=== PATIENT | female | born 1940 | race Caucasian/White ===

== ENCOUNTER 2017-10-09 15:38 | Inpatient (IN) | payer MEDICARE, BC ==
[~2017-10-09] VITALS: Ht 160 cm; Wt 60.5 kg
[~2017-10-09 15:38] MED LIST: ADVAIR INH; ALBUTEROL NEB; ALBUTEROL0.63 MG/3 INH; ALPRAZOLAM ER0.5 MG PO; ASPIR 8181 MG PO; AZELASTINE137 MCG/0. INH; BENZONATATE200 MG PO; CENTRUM SILVER1 EAC4 PO; CITRACAL PO; CLARITIN-D 121 EACH PO; ETOMIDATE 2 MG/ML 10 ML INJ IV ONE; FISH OIL PO; FORTICAL3.7 ML INH; GLYCOPYRROLATE INJ 1MG/ 5 ML SYR ONE; LEVAQUIN500 MG PO; LIDOCAINE HCL 2% LOCAL INJ 5 ML SDV VIAL INJ ONE; METAMUCIL PO; METOPROLOL TART25 MG PO; MONTELUKAST SOD10 MG PO; NEOSTIGMINE 5 MG/5ML SYR ONE; PERFOROMIS20 MCG/2 M INH; PLAQUENIL200 MG PO; PREDNISONE2.5 MG PO; PREDNISONE5 M1 PO; PROAIR HFA INH8.5 GM INH; ROCURONIUM BROMIDE 10 MG/ML 5ML VIAL ONE; SEVOFLURANE INHAL SOLN 250 ML PEN BTL ONE; SPIRIVA18 MCG INH; SUCCINYLCHOLINE 200 MG/10 ML SYR ONE; TESSALON PERLE100 MG
[2017-10-09] MEDS ORDERED: ALBUTEROL SULF 0.083% NEB SOLN 3 ML NEB NEB STA (16:20)
[2017-10-09] MEDS ORDERED: LEVOFLOXACIN 500MG/D5W 100ML 100 ML IV STA (16:20)
[2017-10-09] MEDS ORDERED: METRONIDAZOLE 500MG/NS 100ML 100 ML IV STA (16:20)
[2017-10-09] MEDS ORDERED: MORPHINE SULFATE 2 MG/ML SYR IV STA (16:20)
[2017-10-09] MEDS ORDERED: SODIUM CHLORIDE 0.9% 1000ML 1,000 ML IV STA (16:20)
[2017-10-09] MEDS ORDERED: IPRATROPIUM BROMIDE 0.02% 2.5 ML NEB NEB STA (16:20)
[2017-10-09] MEDS ORDERED: PANTOPRAZOLE 40 MG 10ML VIAL IV STA (16:20)
[2017-10-09] MEDS ORDERED: SODIUM CHLORIDE 0.9% 1000ML 500 ML IV STA (16:20)
[2017-10-09] MEDS ORDERED: ONDANSETRON HCL INJ 2 MG/ML VIAL IV STA (16:20)
[2017-10-09] MEDS ORDERED: METHYLPREDNISOLONE SOD SUCC 125 MG/2ML VIAL IV NR (16:45)
[2017-10-09] MEDS ORDERED: DIATRIZOATE MEGL/DIATRIZOA SOD 30 ML BTL PO ONE (16:53)
[2017-10-09 17:12] LABS: BASOPHILS # (AUTO) 0.2 (0.0-0.1); BASOPHILS % 0.5 % (0.0-1.0); HEMATOCRIT 46.6 % (34.2-44.1); HEMOGLOBIN 14.6 g/dL (12.0-16.0); LYMPHOCYTES # (AUTO) 0.5 (1.0-3.2); LYMPHOCYTES % 1.7 % (18.0-39.1); MEAN CORPUSCULAR HEMOGLOBIN 27.6 pg (28-32); MEAN CORPUSCULAR HGB CONC 31.3 g/dL (31-35); MEAN CORPUSCULAR VOLUME 88.1 fL (81-99); MONOCYTES # (AUTO) 1.2 (0.2-0.8); MONOCYTES % 4.1 % (4.4-11.3); NEUTROPHILS # (AUTO) 26.6 (2.1-6.9); NEUTROPHILS % 90.4 % (38.7-80.0); PLATELET COUNT 408 x10e3/uL (140-360); RED BLOOD COUNT 5.29 x10e6/uL (3.6-5.1); RED CELL DISTRIBUTION WIDTH 14.3 % (11.7-14.4)
[2017-10-09 17:20] LABS: INR 1.15; PROTHROMBIN TIME 13.8 seconds (11.9-14.5)
[2017-10-09] MEDS ORDERED: SODIUM CHLORIDE 0.9% 500ML 500 ML ONE (17:20)
[2017-10-09 17:21] LABS: PARTIAL THROMBOPLASTIN TIME 32.1 seconds (23.8-35.5)
--- NOTE | 2017-10-09 17:27 | Diagnostic Imaging Report ---
PROCEDURE: A single AP view of the chest. COMPARISON: 10/23/12 INDICATIONS: ABDOMINAL PAIN FINDINGS: Lines/tubes: None. Lungs: The lungs are well inflated and clear. There is no evidence of pneumonia or pulmonary edema. Pleura: There is no pleural effusion or pneumothorax. Heart and mediastinum: The heart and the mediastinum are unremarkable. Bones: No acute bony abnormality. Questionable free air under right hemidiaphragm. IMPRESSION: 1. No acute cardiopulmonary disease. 2. Questionable free air under right hemidiaphragm. Please correlate with CT abdomen/pelvis. Dictated by: Kevin Lombardo M.D. on 10/09/2017 at 17:27 Electronically approved by: Kevin Lombardo M.D. on 10/09/2017 at 17:27
[2017-10-09 17:28] LABS: ALBUMIN 2.7 g/dL (3.5-5.0); ALBUMIN/GLOBULIN RATIO 0.6 (0.8-2.0); ANION GAP 23.6 mmol/L (8-16); CALCIUM 10.1 mg/dL (8.4-10.2); CREATININE, SERUM 1.51 mg/dL (0.57-1.11); MAGNESIUM 1.8 MG/DL (1.3-2.1); POTASSIUM 4.6 mmol/L (3.5-5.1)
[2017-10-09] MEDS ORDERED: SODIUM CHLORIDE 0.9% 1000ML 1,000 ML IV SCH (17:34)
[2017-10-09] MEDS ORDERED: FENTANYL CITRATE/PF 100MCG/2 ML INJ IV ONE (17:45)
[2017-10-09] MEDS ORDERED: ONDANSETRON HCL INJ 2 MG/ML VIAL IV PRN (17:45)
[2017-10-09] MEDS ORDERED: ALBUTEROL SULF 0.083% NEB SOLN 3 ML NEB NEB PRN (17:45)
[2017-10-09] MEDS ORDERED: IPRATROPIUM BROMIDE 0.02% 2.5 ML NEB NEB PRN (17:45)
[2017-10-09] MEDS ORDERED: FENTANYL CITRATE/PF 100MCG/2 ML INJ IV SCH (17:45)
[2017-10-09 17:47] LABS: CREATINE KINASE MB 3.2 ng/mL (0-5.0); THYROID STIMULATING HORMONE 2.305 uIU/mL (0.350-4.940)
[2017-10-09] MEDS ORDERED: METRONIDAZOLE 500MG/NS 100ML IV SCH (18:00)
[2017-10-09] MEDS ORDERED: DEXTROSE 50% SYRINGE 50 ML IV ONE (18:12)
[2017-10-09] MEDS ORDERED: MIDAZOLAM HCL 2 MG/2 ML VIAL ONE ×2 (18:16→18:28)
[2017-10-09] MEDS ORDERED: FENTANYL CITRATE/PF 100MCG/2 ML INJ ONE (18:28)
[2017-10-09 18:39] LABS: EOSINOPHILS % (MANUAL) 1 % (0-7); LYMPHOCYTES % (MANUAL) 2 % (19-48); MONOCYTES % (MANUAL) 3 % (3.4-9.0); NEUTROPHILS % (MANUAL) 94 % (40-74); PLATELET ESTIMATE ADEQUATE; PLATELET MORPHOLOGY COMMENT NORMAL; RBC MORPHOLOGY COMMENT NORMAL
[2017-10-09] MEDS: METRONIDAZOLE 500MG/NS 100ML 100 ML IV SCH (18:41)
[2017-10-09] MEDS ORDERED: ERTAPENEM 1GM/NS 100ML 100 ML IV SCH (18:45)
[2017-10-09] MEDS ORDERED: ERTAPENEM 1GM/NS 100ML 100 ML IV ONE (19:00)
--- OUTSIDE RECORDS SUMMARY | 2017-10-09 19:43 | XMS REPORT ---
Author Author [facility] Address Unknown Phone Unavailable Care Team Providers Care Surgical Technology Instructor Name Role Phone LAINEY PRESLEY Unavailable Unavailable Problems This patient has no known problems. Allergies, Adverse Reactions, Alerts This patient has no known allergies or adverse reactions. Medications This patient has no known medications. Results Test Description Test Time Test Comments Text Results Atomic Results Result Comments CHEST SINGLE (PORTABLE) [place] [address] Patient Name: YADY PONCE MR #: [id number] : 1940 Age/Sex: 77/F Req #: [id number] Adm Physician: Ordered by: LAINEY PRESLEY MD, MD Report #: [id number] Location: ER Room/Bed: Procedure: [id number] DX/CHEST SINGLE (PORTABLE) Exam Date: Exam Time: REPORT STATUS: Signed PROCEDURE: A single AP view of the chest. COMPARISON: 10/23/12 INDICATIONS: ABDOMINAL PAIN FINDINGS: Lines/tubes: None. Lungs: The lungs are well inflated and clear. There is no evidence of pneumonia or pulmonary edema. Pleura: There is no pleural effusion or pneumothorax. Heart and mediastinum: The heart and the mediastinum are unremarkable. Bones: No acute bony abnormality. Questionable free air under right hemidiaphragm. IMPRESSION: 1. No acute cardiopulmonary disease. 2. Questionable free air under right hemidiaphragm. Please correlate with CT abdomen/pelvis. Dictated by: Kevin Chong M.D. on 10/09/2017 at 17:27 Electronically approved by: Kevin Chong M.D. on 10/09/2017 at 17:27 Dictated By: KEVIN CHONG MD 26 Transcribed By: HARRY on 10/09/171726 COPY TO: LAINEY PRESLEY
--- NOTE | 2017-10-09 19:47 | Diagnostic Imaging Report ---
EXAMINATION: CT of the abdomen and pelvis without contrast. TECHNIQUE: Spiral CT images of the abdomen and pelvis were performed from the lung bases to the lesser trochanters. No intravenous contrast was given per physician's request. Oral dilute Gastrografin was given. Coronal and sagittal reformatted images were obtained. COMPARISON: None. CLINICAL HISTORY:History of diverticulitis, bloating, abdominal pain DISCUSSION: ABSENCE OF INTRAVENOUS CONTRAST DECREASES SENSITIVITY FOR DETECTION OF FOCAL LESIONS AND VASCULAR PATHOLOGY. ABDOMEN/PELVIS: LOWER THORAX: Mild bronchial wall thickening and bronchiectatic changes in the right lower lobe. Mild atelectatic changes in the lateral aspect of the right lower lobe. Pectus excavatum. Atherosclerotic calcification of the thoracic aorta. HEPATOBILIARY: No focal hepatic lesions. No intra or extrahepatic biliary ductal dilation. GALLBLADDER: Punctate hyperdensities in the gallbladder lumen likely representing a combination of tiny stones and sludge (for example coronal image 40 and series 2, image 24) No wall thickening. SPLEEN: No splenomegaly. PANCREAS: No focal masses or ductal dilatation. ADRENALS: No adrenal nodules. KIDNEYS/URETERS: No hydronephrosis, stones, or solid mass lesions. PELVIC ORGANS/BLADDER: Bladder is unremarkable. [place] catheter is located in the vagina. No adnexal masses. PERITONEUM/RETROPERITONEUM: Moderate pneumoperitoneum. Scattered foci of air in the mesentery, with the largest focus located adjacent to a small bowel loop in the mid pelvis (series 2, image 54). LYMPH NODES: No intra-abdominal,retroperitoneal, pelvic or inguinal lymphadenopathy. VESSELS: Atherosclerotic calcification of the abdominal aorta and iliac vessels. GI TRACT: Several air and fluid filled loops of proximal small bowel are mildly dilated, with maximal measurement of approximately 3.2 cm. The ileum is mostly decompressed. No large bowel dilation. Moderate to large amount of retained stool. Descending and sigmoid colon diverticulosis. Moderate fat stranding and soft tissue density adjacent to a 3-4 cm segment of the mid to distal sigmoid colon with multiple diverticula (series 2, image 57 and sagittal image 60), likely representing diverticulitis and phlegmon. Stomach is unremarkable. BONES AND SOFT TISSUES: No aggressive lytic lesions. Degenerative changes in the lumbosacral spine. Calcified bilateral gluteal injection granulomas. IMPRESSION: 1. Findings consistent with mid to distal sigmoid diverticulitis and likely phlegmon formation, with likely perforation as source of moderate pneumoperitoneum. 2. Mildly dilated proximal small bowel loops, likely representing ileus. No large bowel dilation. 3. Cholelithiasis and likely sludge, without CT evidence of cholecystitis. 4. Findings in the right lower lobe likely reflect sequela of chronic bronchitis. 5. Findings discussed with Dr. Reed October 09, 2017 at 1935 hours Signed by: Dr. Jesus Covarrubias M.D. on 10/09/2017 7:44 PM
[2017-10-09 20:01] LABS: BILIRUBIN,URINE NEGATIVE (NEGATIVE); CLARITY,URINE CLEAR (CLEAR); COLOR,URINE YELLOW (YELLOW); KETONES,URINE NEGATIVE (NEGATIVE); LEUKOCYTE ESTERASE ,URINE NEGATIVE (NEGATIVE); NITRITE,URINE NEGATIVE (NEGATIVE); URINE UROBILINOGEN 0.2 mg/dL (0.2 - 1)
[2017-10-09 20:07] LABS: PROTEIN,URINE DIPSTICK TRACE (NEGATIVE)
[2017-10-09 20:13] LABS: EPITHELIAL CELLS,URINE FEW /LPF; RBC,URINE 0-5 /HPF (0-5)
--- NOTE | 2017-10-09 21:26 | Consultation ---
DATE OF CONSULTATION: October 09, 2017 A 77-year-old female. ATTENDING PHYSICIANS: Dr. Antonino Young and Dr. Osorio Cruz. CLINICAL HISTORY: This is a 77-year-old white woman known to our service from previous evaluations by Dr. Derek Viveros, seen in the emergency room of [facility] because of sinus tachycardia with PACs with a rate of 127 beats per minute. This rhythm initially was thought to be atrial fibrillation. This patient apparently has COPD, has had tachycardia, PAC. Echocardiogram done in 2009 are showing ejection fraction of 60% with mitral valve prolapse. Septum was slightly hypokinetic. Pulmonary artery systolic pressure was 38 mmHg. PAST MEDICAL HISTORY: Remarkable for cigarette smoking, also for rheumatoid arthritis, previously using prednisone. PAST SURGERY: Laminectomy, hysterectomy, tonsillectomy, adenoidectomy, laparoscopic left knee surgery, bladder suspension. PERSONAL/SOCIAL HISTORY: She denies any drinking now. She stopped smoking in 2004. She was 2 pack years per day cigarette smoker. REVIEW OF SYSTEMS: Noncontributory. This afternoon, patient developed severe abdominal pains. Initially thought to be constipation. Finally, she went to see Dr. Antonino Young's office, but was not seen and was instead referred directly to our emergency room. In the emergency room, her workup indicated she may have bowel perforation. She is scheduled for surgery and cardiology consultation requested. PAST MEDICAL HISTORY: Also remarkable for rheumatoid arthritis, previously treated with steroids, COPD as mentioned. PAST SURGERY: Laminectomy, hysterectomy, tonsillectomy and adenoidectomy, laparoscopic left knee surgery, bladder suspension. PERSONAL/SOCIAL HISTORY: She stopped smoking in 2004. Has history of drinking. She was 2-pack years per day of smoker. REVIEW OF SYSTEMS: Noncontributory. PHYSICAL EXAMINATION GENERAL: She is thin, alert, coherent, appears to be comfortable. CARDIAC: Jugular veins are not distended. S1 and S2 were regular, distant with occasional ectopy, somewhat rapid. LUNGS: Diminished breath sounds. ABDOMEN: Soft, but tender with guarding. Bowel sounds were diminished. EXTREMITIES: No cyanosis, clubbing, edema. IMPRESSIONS 1. Increased risk from the cardiac standpoint for the planned bowel surgery due to her advanced age. 2. History of cardiac arrhythmia, probably representing premature atrial contractions rather than atrial fibrillation. She has pretty significant sinus tachycardia with ventricular rate of 127 beats per minute. This may be exacerbated by her anxiety, pulmonary condition, as well as possible underlying pulmonary medications. 3. Perforated bowel with free air and acute abdomen. 4. Chronic obstructive pulmonary disease. 5. History of rheumatoid arthritis. RECOMMENDATION: Check thyroid function. Check for anemia. Consider D-dimer. Consider echocardiogram. Increased risk from a cardiac standpoint for the planned bowel surgery, which will be done in emergency basis was explained, understood. Patient is willing to proceed as planned. Job#: [id number] cc:MD RAFFY HDZ MD
[2017-10-09] MEDS ORDERED: FENTANYL CITRATE/PF 100MCG/2 ML INJ IV PRN (21:45)
[2017-10-10] VITALS (128 sets, daily range): BP systolic 52–202; BP diastolic 23–260
[2017-10-10] MEDS ORDERED: METHYLPREDNISOLONE SOD SUCC 40 MG/ML VIAL IV SCH
[2017-10-10] MEDS ORDERED: ONDANSETRON HCL INJ 2 MG/ML VIAL IV PRN (02:45)
[2017-10-10] MEDS ORDERED: ACETAMINOPHEN 1000 MG/100 ML IV PRN (02:45)
[2017-10-10] MEDS: SODIUM CHLORIDE 0.9% 1000ML 1,000 ML IV SCH ×2 (03:30→12:43)
[2017-10-10] MEDS: SODIUM CHLORIDE 0.9% 250ML IRRIG IR SCH ×6 (03:45→23:00)
[2017-10-10] MEDS: HYDROMORPHONE 1MG/1ML INJ IV PRN (04:20)
--- NOTE | 2017-10-10 05:33 | Operative Report ---
DATE OF PROCEDURE: October 10, 2017 PREOPERATIVE DIAGNOSIS: Perforated viscus and peritonitis. POSTOPERATIVE DIAGNOSIS: Perforated viscus and peritonitis secondary to perforated sigmoid diverticulitis with pelvic abscess. OPERATIONS PERFORMED 1. Exploratory laparotomy. 2. Sigmoid colectomy and colostomy. 3. Vargas's pouch. ANESTHESIA: General. COMPLICATIONS: None. ESTIMATED BLOOD LOSS: 200 mL. DESCRIPTION OF PROCEDURE: With the patient lying in bed in the supine position under good general endotracheal anesthesia, the abdomen was prepped with Betadine solution and draped in the usual manner. A midline incision was made. It was carried down through the subcutaneous tissue and through the midline fascia. The peritoneum was opened and the abdomen was entered. Upon entering the abdominal cavity, some foul-smelling material was encountered. Examination at this point revealed a mass in the sigmoid colon consistent with perforated diverticulitis with some loops of small bowel stuck to the infected area. The rest of the abdominal exploration did not show any other sign of any perforation anywhere else. We decided to go ahead and proceed with the sigmoid colon resection and a colostomy. The sigmoid colon was then mobilized over the lateral gutter and brought medially. The colon was divided at the level of the descending colon after mobilizing the splenic flexure using an application of the GARCÍA-75 stapler using the In-Seal device. The mesentery of the colon was then slowly and carefully divided, including the area of the perforation. Then at the level of the lower sigmoid colon the colon was again divided with another application of the GARCÍA-75 stapler dividing the colon and sending it for pathological examination. The whole area was then inspected, and all of the loculations were broken down. The bowel was run from one end to the other. The whole abdomen was then copiously irrigated and perfect hemostasis was ascertained. The proximal colon was then prepared for ostomy. Another small portion was removed to make sure that we had a viable part of the colon to the colostomy. After this was done, incision was then made in the left midabdomen. A cruciate incision was carried down through the rectus fascia, and a tunnel was created without any difficulty. The colon was then brought out through the outside through the created stoma site. The abdomen was then closed in layers. Peritoneum was closed with a running suture of #1 Vicryl. The midline fascia was closed with a running suture of #1 PDS and the skin was closed with clips. The colostomy was then matured using interrupted sutures of 3-0 Vicryl. Appliance and dressings were applied. The sponge, lap and needle count was correct. Patient tolerated the procedure well, and returned to the recovery room in stable condition. Job#: [id number] ALYSSA
[2017-10-10] MEDS ORDERED: PIPER-TAZ 3.375 GM 50 ML IV SCH (06:00)
[2017-10-10] MEDS: PANTOPRAZOLE 40 MG 10ML VIAL IV SCH (06:05)
[2017-10-10 06:34] LABS: BASOPHILS # (AUTO) 0.2 (0.0-0.1); BASOPHILS % 0.6 % (0.0-1.0); HEMATOCRIT 39.5 % (34.2-44.1); HEMOGLOBIN 11.9 g/dL (12.0-16.0); LYMPHOCYTES # (AUTO) 0.4 (1.0-3.2); LYMPHOCYTES % 1.5 % (18.0-39.1); MEAN CORPUSCULAR HEMOGLOBIN 27.8 pg (28-32); MEAN CORPUSCULAR HGB CONC 30.1 g/dL (31-35); MEAN CORPUSCULAR VOLUME 92.3 fL (81-99); MONOCYTES # (AUTO) 2.3 (0.2-0.8); MONOCYTES % 7.8 % (4.4-11.3); NEUTROPHILS # (AUTO) 25.7 (2.1-6.9); PLATELET COUNT 349 x10e3/uL (140-360); RED BLOOD COUNT 4.28 x10e6/uL (3.6-5.1); RED CELL DISTRIBUTION WIDTH 14.6 % (11.7-14.4)
[2017-10-10] MEDS: METRONIDAZOLE 500MG/NS 100ML 100 ML IV SCH ×4 (06:40→19:25)
[2017-10-10 06:45] LABS: INR 1.39
[2017-10-10 07:02] LABS: ALBUMIN 1.8 g/dL (3.5-5.0); ALBUMIN/GLOBULIN RATIO 0.6 (0.8-2.0); ANION GAP 17.3 mmol/L (8-16); CALCIUM 7.2 mg/dL (8.4-10.2); CREATININE, SERUM 1.08 mg/dL (0.57-1.11); MAGNESIUM 1.2 MG/DL (1.3-2.1); PHOSPHORUS 4.9 MG/DL (2.3-4.7); POTASSIUM 4.3 mmol/L (3.5-5.1)
[2017-10-10] MEDS ORDERED: NALOXONE HCL INJ 0.4 MG/ML AMP ONE (08:15)
[2017-10-10] MEDS ORDERED: NALOXONE HCL INJ 0.4 MG/ML AMP IV PRN (08:30)
[2017-10-10] MEDS: FORMOTEROL FUMARATE 20 MCG/2 ML VIAL IH SCH ×2 (09:00→19:00)
[2017-10-10] MEDS ORDERED: FAMOTIDINE 20 MG/2 ML VIAL IV SCH (09:00)
[2017-10-10] MEDS ORDERED: NOREPINEPHRINE BITARTRATE/ NS 250 ML ONE ×2 (09:02→16:56)
[2017-10-10 09:26] LABS: HEMATOCRIT 40.3 % (34.2-44.1); HEMOGLOBIN 11.7 g/dL (12.0-16.0); MEAN CORPUSCULAR HEMOGLOBIN 27.8 pg (28-32); MEAN CORPUSCULAR VOLUME 95.7 fL (81-99); PLATELET COUNT 313 x10e3/uL (140-360); RED BLOOD COUNT 4.21 x10e6/uL (3.6-5.1); RED CELL DISTRIBUTION WIDTH 14.6 % (11.7-14.4)
[2017-10-10 09:44] LABS: ABG PCO2 49 mmHg (41-51); ABG PH 7.06 (7.31-7.41); ABG PO2 512 mmHg (80-105)
[2017-10-10 09:45] LABS: ABG HCO3 14 mmol/L (23-28)
[2017-10-10] MEDS ORDERED: SODIUM CHLORIDE 0.9% IV PRN (09:45)
[2017-10-10] MEDS ORDERED: EPINEPHRINE HCL IV PRN (09:45)
[2017-10-10 09:47] LABS: ALBUMIN 1.9 g/dL (3.5-5.0); ALBUMIN/GLOBULIN RATIO 0.6 (0.8-2.0); ANION GAP 25.5 mmol/L (8-16); CALCIUM 7.7 mg/dL (8.4-10.2); CREATININE, SERUM 1.82 mg/dL (0.57-1.11)
[2017-10-10 09:48] LABS: CREATINE KINASE MB 11.4 ng/mL (0-5.0)
[2017-10-10 09:49] LABS: POTASSIUM 6.5 mmol/L (3.5-5.1)
--- NOTE | 2017-10-10 09:54 | Diagnostic Imaging Report ---
EXAMINATION: CHEST SINGLE (PORTABLE) INDICATION: \S\intubated COMPARISON: CT abdomen and pelvis 10/09/2017. Chest x-ray 04/23/2016. FINDINGS: AP view TUBES and LINES: Endotracheal tube is 5.5 cm above the ana m. The trachea is slightly deviated to the left and is unchanged compared to prior examinations. LUNGS: Lungs are hyper inflated. Lungs are clear. There is no evidence of pneumonia or pulmonary edema. PLEURA: No pleural effusion or pneumothorax. HEART AND MEDIASTINUM: The cardiomediastinal silhouette is unremarkable. BONES AND SOFT TISSUES: No acute osseous lesion. Soft tissues are unremarkable. UPPER ABDOMEN: No free air under the diaphragm. IMPRESSION: 1. Endotracheal tube is 5.5 cm above the ana m. The trachea is slightly deviated to the left and is unchanged compared to prior examinations. 2. Patient slightly rotated to left. Signed by: Dr. Jimenez Matthews M.D. on 10/10/2017 9:51 AM
[2017-10-10] MEDS ORDERED: SODIUM BICARBONATE 8.4% SYRING 50 ML ONE (10:13)
[2017-10-10] MEDS ORDERED: CALCIUM GLUCONATE 10% INJ 0.465 MEQ/ML VIAL ONE (10:13)
[2017-10-10 10:21] LABS: BAND NEUTROPHILS % (MANUAL) 6 %; LYMPHOCYTES % (MANUAL) 4 % (19-48); MONOCYTES % (MANUAL) 10 % (3.4-9.0); NEUTROPHILS % (MANUAL) 80 % (40-74); PLATELET ESTIMATE ADEQUATE; PLATELET MORPHOLOGY COMMENT NORMAL; RBC MORPHOLOGY COMMENT NORMAL
[2017-10-10] MEDS ORDERED: DEXTROSE 5% IV SCH (10:30)
[2017-10-10] MEDS ORDERED: SODIUM BICARBONATE 8.4% IV SCH (10:30)
[2017-10-10] MEDS: SODIUM BICARBONATE 8.4% 150 ML in DEXTROSE 5% 1,000 ML IV SCH ×2 (10:45→19:57)
[2017-10-10] MEDS ORDERED: INSULIN REGULAR, HUMAN 100 UNIT/1 ML 3ML VIAL ONE (10:50)
[2017-10-10 11:12] LABS: BAND NEUTROPHILS % (MANUAL) 9 %; LYMPHOCYTES % (MANUAL) 4 % (19-48); MONOCYTES % (MANUAL) 3 % (3.4-9.0); NEUTROPHILS % (MANUAL) 84 % (40-74); PLATELET ESTIMATE ADEQUATE; PLATELET MORPHOLOGY COMMENT NORMAL; RBC MORPHOLOGY COMMENT NORMAL
[2017-10-10 12:23] LABS: ALBUMIN/GLOBULIN RATIO 0.7 (0.8-2.0); ANION GAP 18.3 mmol/L (8-16); CREATININE, SERUM 1.41 mg/dL (0.57-1.11); POTASSIUM 4.3 mmol/L (3.5-5.1)
[2017-10-10 12:33] LABS: CALCIUM 5.8 mg/dL (8.4-10.2)
[2017-10-10] MEDS ORDERED: CALCIUM GLUCONATE 10% INJ 4.65 MEQ in SODIUM CHLORIDE 0.9% 50ML 50 ML IV SCH (12:45)
[2017-10-10] MEDS ORDERED: ALBUMIN 5% 250ML IV SCH (12:45)
--- NOTE | 2017-10-10 13:15 | Cardiology Report ---
DATE OF STUDY: October 10, [address] Huerta, Dr. Antonino Young. Healthcare Translator Dr. Adam. A 77-year-old female. M-MODE: Normal chamber wall dimensions. Normal contractility. Normal mitral and aortic valves. No pericardial effusion. SECTOR SCAN: Normal chamber wall dimensions. Normal contractility. Normal mitral, aortic and tricuspid valves. No pericardial effusion. CARDIAC DOPPLER STUDY WITH COLOR: Mild mitral regurgitation. Trace aortic and tricuspid regurgitation. Pulmonary artery systolic pressure estimated at 40 mmHg. CONCLUSIONS: 1. Trace tricuspid regurgitation with borderline pulmonary hypertension. Pulmonary artery systolic pressure estimated at 40 mmHg. 2. Mild mitral regurgitation. 3. Trace aortic regurgitation. 4. Left ventricular ejection fraction is approximately 60%. Job#: [id number] EV cc:Sergo KEMP MD
--- NOTE | 2017-10-10 13:19 | Diagnostic Imaging Report ---
EXAMINATION: CHEST SINGLE (NOT PORTABLE) INDICATION: \S\hemodialysis line placement COMPARISON: Chest x-ray 10/10/2017 FINDINGS: AP view TUBES and LINES: Endotracheal tube is unchanged. Nasogastric tube is in the stomach. New right hemodialysis catheter with tip in mid SVC. LUNGS: Lungs are well inflated. New left lower lobe atelectasis. PLEURA: New small left pleural effusion. HEART AND MEDIASTINUM: The cardiomediastinal silhouette is unremarkable. There are atherosclerotic calcifications within the aorta. BONES AND SOFT TISSUES: No acute osseous lesion. Soft tissues are unremarkable. UPPER ABDOMEN: No free air under the diaphragm. IMPRESSION: 1. New right hemodialysis catheter with tip in mid SVC. 2. New small left pleural effusion with atelectasis. Signed by: Dr. Jimenez Matthews M.D. on 10/10/2017 1:16 PM
--- NOTE | 2017-10-10 13:50 | Consultation ---
DATE OF CONSULTATION: October 10, 2017 STAT RENAL CONSULT Ms. Anahi Paz is a 77-year-old female who is currently in the ICU with sepsis and septic shock. She is status post abdominal exploratory laparotomy, sigmoid colectomy, colostomy and Vargas pouch creation. Currently hypotensive and severely septic, intra-abdominal, on Levophed at 10 mcg. Current systolic blood pressure 87. She has been given about 3 liters of saline so far in the form of boluses. Currently IV bicarbonate going. Hyperkalemic, which is why there was a stat consultation. She is anuric. Discussed with Dr. Fernie Reed in detail, who was called on a rapid response. Emergent treatment for hyperkalemia has been given. She has had prior significant history of COPD, prior tachyarrhythmia, prior bladder suspension surgery, arthroscopic knee surgery, hysterectomy, tonsillectomy. Prior history of tobacco addiction, quit several years ago. No recent echocardiogram available. Laboratory test shows potassium 6.5, bicarbonate 12, creatinine 1.82 with a calcium 7.7. Total bilirubin 1.7. LFTs significantly elevated, 546 and 535 AST/ALT respectively. Alkaline phosphatase is 96. CK is 257, troponin I 0.149. Albumin 1.9. Last blood gas shows pH 7.06, pCO2 49, pO2 of 512. CBC shows a __white count 26.9, __white count 11.7, platelets 313. ALLERGIES: ALENDRONATE, CALCITONIN, CODEINE, PINEAPPLE, ROFLUMILAST, THEOPHYLLINE. CURRENT MEDICATIONS: Patient is on IV bicarbonate drip, Levophed, Zofran p.r.n., albuterol/Atrovent nebulizer. She is on a Versed drip. She started on , ertapenem, received one-time dose. Received one-time dose of Levaquin. On Flagyl 500 mg IV q.6. SOCIAL HISTORY: As above. PAST HISTORY: As above. REVIEW OF SYSTEMS: Unable to get a review of systems due to medical condition. PHYSICAL EXAMINATION GENERAL: Patient does not follow commands but is arousable. She currently has a right-sided femoral central line. This is a thin-built female who is currently intubated, lying supine. VITAL SIGNS: Blood pressure 87 systolic at the moment with a pulse rate 92, sinus tachy. HEAD AND NECK: Orally intubated. Some amount of conjunctival edema noted. Neck veins could not be appreciated. LUNGS: Harsh vesicular breath sounds. Air entry clear bilaterally. Scattered rales. HEART: S1 and S2 audible. Tachycardic rhythm. ABDOMEN: Abdominal examination deferred. Has a dressing noted as well as a Vargas's pouch. A colostomy. LOWER EXTREMITIES: No edema. Some amount of acrocyanosis noted. IMPRESSION/PLAN 1. Severe sepsis with septic shock. 2. Hyperkalemia. 3. Severe metabolic acidosis. 4. Intra-abdominal sepsis. 5. Acute tubular necrosis. 6. Anuric. 7. Life-threatening hyperkalemia. Currently no EKG changes on the monitor. A stat dialysis catheter ordered. As soon as dialysis catheter is placed, nurse is on standby to do dialysis. At the moment is in shock. Will give normal saline 1 liter bolus. Will also give a gram of calcium gluconate. Will also give 2 vials of albumin. Hemodynamically unstable for dialysis, but we have no choice but to attempt dialysis with pressor support. Will need to start vasopressin as well once Levophed is maximized. Overall prognosis poor. Infectious Disease consulted on a stat basis. Job#: [id number] SAMARIA
[2017-10-10] MEDS ORDERED: ALBUMIN HUMAN 100 ML IV ONE (14:31)
[2017-10-10] MEDS ORDERED: ALBUMIN HUMAN 50 ML IV ONE (14:53)
--- NOTE | 2017-10-10 16:46 | Consultation ---
DATE OF CONSULTATION: PULMONARY CONSULTATION REASON FOR CONSULTATION: Respiratory failure. Septic shock. Severe metabolic acidosis. HISTORY OF PRESENT ILLNESS: Ms. Paz is a 77-year-old female who initially presented through the emergency room with the complaints of dizziness and weakness and abdominal pain. Per the chart, she is on chronic steroids for rheumatoid arthritis. She had no chest pain. She has had some difficulty breathing and chest discomfort. Patient also has history of COPD per the chart, was admitted in June 2016 here. She is possibly on home oxygen and has history of smoking as well. She underwent a CT of the abdomen and pelvis in the emergency room which showed distal sigmoid diverticulitis, likely phlegmon formation with perforation as a source of moderate pneumoperitoneum. Surgery consult was called, and patient was taken to the OR by Dr. Cruz this morning around 3 a.m. Patient underwent sigmoid colectomy, colostomy and exploratory laparotomy. Postoperative diagnosis was perforated viscus and peritonitis secondary to perforated sigmoid diverticulitis. Post colectomy she had a rapid response, and she came out of the OR extubated, became short of breath and was intubated. Post intubation, patient's blood gas shows pH of 7.06, pCO2 of 49, pO2 of 512. Chemistry showed creatinine went up to 1.82 and potassium was 6.5. Nephrology was consulted. AST/ALT increased to 2000. The patient is currently intubated and sedated. REVIEW OF SYSTEMS: Unable to elicit any as patient is currently on sedation. PAST MEDICAL HISTORY: Per the chart COPD, rheumatoid arthritis, history of cardiac arrhythmias, unsure which one specifically. PAST SURGICAL HISTORY: Hysterectomy, tonsillectomy, adenoidectomy, knee surgery. FAMILY AND SOCIAL HISTORY: Smoker, stopped in 2004. PHYSICAL EXAMINATION: VITALS: Temperature 97.4, pulse of 98, blood pressure 101/62. Patient is intubated, sedated on FIO2 of 100%, PEEP of 8, tidal volume of 450. HEENT: Head atraumatic normocephalic. NECK: Supple. No JVD. Patient is orally intubated, has a dialysis catheter on the right IJ. CHEST: Clear to auscultation bilaterally. No wheezing. No crackles. HEART: S1/S2 audible. ABDOMEN: Has a dressing and there is a bandage. Unable to do the abdominal exam. EXTREMITIES: No clubbing, cyanosis or edema. NEUROLOGICALLY: Sedated, intubated. LABORATORY DATA: White count of 26,000, hemoglobin 11.7, platelets 313. Chemistry: Sodium 141, potassium 4.3, BUN 28, creatinine 1.41. PH of 7.06, pCO2 of 49, pO2 of 512. CHEST X-RAY: I have reviewed the images, not showing any focal infiltrate. ASSESSMENT AND PLAN: Ms. Paz is a 77-year-old female who presented with perforated bowel. Postoperatively developed respiratory failure, sepsis and circulatory shock. Patient was intubated and sedated, now on hemodialysis per Nephrology. CURRENT PROBLEMS: 1. Septic shock secondary to bowel perforation, status post colectomy. 2. History of COPD. 3. History of chronic steroid use because of rheumatoid arthritis per the chart. 4. Acute respiratory failure. 5. Severe metabolic acidosis. PLAN: 1. Continue the patient on vasopressors. Will hold off on the stress-dose steroids as patient is postoperative and will hinder wound healing at this point. We will observe her closely. If needed, we can start the stress-dose steroids. 2. Ventilator settings reviewed, changed to PRVC. Continue the patient on current tidal volume. Will reduce the Fi02 to 60%. 3. IV antibiotics. Patient is on Flagyl, Zosyn, which will be continued. 4. Severe hyperkalemia and metabolic acidosis. Patient is getting hemodialysis per Nephrology recommendations. Discussed with patient's family member at bedside in detail. Critical care time spent 50 minutes. Job#: [id number] SAMARIA
[2017-10-10] MEDS: VASOPRESSIN 100 UNIT in DEXTROSE 5% 100ML 100 ML IV PRN (16:55)
[2017-10-10] MEDS ORDERED: LEVOFLOXACIN 500MG/D5W 100ML 100 ML IV SCH (17:00)
[2017-10-10] MEDS: HYDROMORPHONE 20MG/ NS 100ML IV PRN (17:00)
[2017-10-10] MEDS ORDERED: HEPARIN SOD (PORCINE) 1000 UNIT/ML SDV ONE (17:16)
[2017-10-10] MEDS: SALMETEROL/FLUTICASONE 250/50 INH SCH (19:00)
--- NOTE | 2017-10-10 20:27 | Consultation ---
DATE OF CONSULTATION: INFECTIOUS DISEASE CONSULTATION REASON FOR CONSULTATION: Septic shock. HISTORY OF PRESENT ILLNESS: This is a patient who is a 77-year-old white female who is a patient of Dr. Young. The patient has been having abdominal pain for the last week, getting progressively worse. She called Dr. Young. They put her on the schedule for Thursday, but she felt a lot worse; so, she came to the emergency room. In the emergency room when she came and evaluated, it was found she had a ruptured colon. So, she underwent urgent surgery. She is currently in the intensive care unit, intubated, on maximum dose of vasopressors. Infectious Disease was consulted. I met with her family. The patient apparently has history of COPD, history of rheumatoid arthritis, history of coronary artery disease, history of tachycardia before. The patient started having problems with constipation recently. PAST MEDICAL HISTORY: As above. PAST SURGICAL HISTORY: Laminectomy, hysterectomy, tonsillectomy, adenoidectomy, bladder suspension, left knee surgery. SOCIAL HISTORY: She quit smoking in 2004. Before that, she used to smoke 2 packs a day for several years. ALLERGIES: NKA. MEDICATION LIST: She was on prednisone 2.5 mg daily plus Plaquenil. Rest of medication also reviewed with the patient's family. She is currently on IV fluid, vasopressors, Narcan, metronidazole, Zosyn. Patient received 1 dose of Invanz. She is currently on Flagyl. She has received Levaquin. LABORATORY DATA: Reviewed. Her white count is 26.9. When she first came, it was 29.4. Hemoglobin 11. Her platelet 313. She had 84% segs. Sodium 141, potassium 4.3. Her creatinine is 1.4. It was 1.8 yesterday. Lactic acid 16.8. Albumin was 1.8. PHYSICAL EXAMINATION GENERAL: She is intubated, sedated. Very ill. VITAL SIGNS: Stable. Currently afebrile. HEENT: She does not appear icteric. Normocephalic. NECK: Supple. CHEST: A few crackles bilaterally. HEART: S1 and S2. No S3 or S4, no murmur. ABDOMEN: Soft. IMPRESSION: Sepsis secondary to peritonitis in a patient with rheumatoid arthritis on low-dose steroids. Will put her on cefepime, metronidazole and vancomycin. Adjust for her kidney function. Prognosis is really poor. Mortality at least 50%. Patient's family aware. She has 2 daughters, and they want no CPR. Continue with vasopressors and ventilatory support, IV fluid. Reassess in the morning. Prognosis is extremely guarded. Job#: [id number] EV
[2017-10-10] MEDS: MIDAZOLAM HCL 25 MG in SODIUM CHLORIDE 0.9% 50ML 45 ML IV PRN (20:44)
[2017-10-10] MEDS: CEFEPIME HCL 1 GM VIAL IV SCH (21:17)
[2017-10-10] MEDS: HYDROCORTISONE SOD SUCCINATE 100 MG VIAL IV SCH (21:30)
[2017-10-10] MEDS: FLUCONAZOLE 200 MG/100 ML 100 ML IV SCH (21:30)
[2017-10-10] MEDS: VANCOMYCIN 1GM/NS 250 ML 250 ML IV SCH (21:30)
[2017-10-11] VITALS (112 sets, daily range): BP systolic 68–175; BP diastolic 40–120
--- NOTE | 2017-10-11 00:09 | Diagnostic Imaging Report ---
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 Blood pressure was monitored at 5 minute intervals. Additional Medications: Lidocaine 1% for local anesthesia Fluoroscopy time: 0 Dose-area Product: 0 mGycm2. Frontal Air Kerma: 0 Contrast used: 0 Estimated blood loss: Minimal Specimens: None Implants: 13 Faroese, 15 cm triple-lumen hi flow central venous catheter. DISCUSSION: Informed consent was obtained from the next of kin and documented in the medical record. Preliminary sonographic evaluation of the right cervical region confirmed patency of the right internal jugular vein, evidenced by compressibility. The right neck was then prepped and draped in standard sterile fashion. 1% lidocaine was infiltrated into the skin and subcutaneous tissues for local anesthesia. Then under continuous sonographic guidance, an 18-gauge singlewall needle was used to access the right internal jugular vein. A permanent sonographic image was stored in the medical record. A 0.0 3 5-in. wire was advanced centrally to a depth of approximately 25 cm with continuous cardiac rhythm monitoring. The needle was removed over the wire and the tract was dilated. Then, a 13 Faroese, 15 cm triple-lumen central venous catheter was advanced over the wire to full depth. The wire was removed. Each lumen showed adequate bidirectional flow and was flushed with sterile saline. The catheter was secured with monofilament nylon suture and a sterile dressing was applied. The patient tolerated the procedure without immediate complication. FINDINGS: Patent right internal jugular vein IMPRESSION: Successful placement of a 13 Faroese, 15 cm high flow triple-lumen central venous catheter (Trialysis catheter) by a right internal jugular approach under sonographic guidance. Post procedure chest radiograph was requested upon completion of the procedure to confirm line positioning prior to use. Signed by: Dr. Leopoldo Ruiz M.D. on 10/11/2017 12:05 AM
[2017-10-11] MEDS: METRONIDAZOLE 500MG/NS 100ML 100 ML IV SCH ×5 (00:20→23:05)
[2017-10-11] MEDS: SODIUM CHLORIDE 0.9% 250ML IRRIG IR SCH ×6 (02:08→22:10)
[2017-10-11] MEDS: MIDAZOLAM HCL 25 MG in SODIUM CHLORIDE 0.9% 50ML 45 ML IV PRN ×2 (02:15→10:37)
[2017-10-11] MEDS: SODIUM BICARBONATE 8.4% 150 ML in DEXTROSE 5% 1,000 ML IV SCH (04:20)
[2017-10-11] MEDS: PANTOPRAZOLE 40 MG 10ML VIAL IV SCH (05:20)
[2017-10-11] MEDS: CEFEPIME HCL 1 GM VIAL IV SCH ×2 (05:20→15:48)
[2017-10-11] MEDS: HYDROCORTISONE SOD SUCCINATE 100 MG VIAL IV SCH ×3 (05:20→22:10)
--- NOTE | 2017-10-11 05:30 | Diagnostic Imaging Report ---
CHEST SINGLE (PORTABLE), 10/11/2017 5:00 AM Technique: CHEST SINGLE (PORTABLE) Comparison: Previous day Clinical history: Intubated Findings: See Impression Impression: 1. Lines/Tubes: ET tube 5.2 cm above the ana m. Stable right IJ CVC over the SVC since subdiaphragmatic NG tube. 2. Stable small left effusion with improved left basilar atelectasis or consolidation. Signed by: Dr Heidi Fabian MD on 10/11/2017 5:26 AM
[2017-10-11] MEDS: NOREPINEPHRINE BITARTRATE/ NS 250 ML IV PRN ×2 (06:00→20:45)
[2017-10-11 06:19] LABS: BASOPHILS # (AUTO) 0.1 (0.0-0.1); BASOPHILS % 0.3 % (0.0-1.0); EOSINOPHILS % 0.1 % (0.0-6.0); MEAN CORPUSCULAR HEMOGLOBIN 27.8 pg (28-32); MEAN CORPUSCULAR HGB CONC 31.8 g/dL (31-35); MEAN CORPUSCULAR VOLUME 87.3 fL (81-99); MONOCYTES # (AUTO) 0.7 (0.2-0.8); MONOCYTES % 4.2 % (4.4-11.3); NEUTROPHILS # (AUTO) 16.8 (2.1-6.9); PLATELET COUNT 112 x10e3/uL (140-360); RED BLOOD COUNT 2.52 x10e6/uL (3.6-5.1); RED CELL DISTRIBUTION WIDTH 14.5 % (11.7-14.4)
[2017-10-11 06:38] LABS: ALBUMIN 2.3 g/dL (3.5-5.0); ALBUMIN/GLOBULIN RATIO 1.9 (0.8-2.0); ANION GAP 13.5 mmol/L (8-16); CREATININE, SERUM 1.55 mg/dL (0.57-1.11); POTASSIUM 3.5 mmol/L (3.5-5.1)
[2017-10-11 06:39] LABS: CALCIUM 6.3 mg/dL (8.4-10.2)
[2017-10-11] MEDS: SALMETEROL/FLUTICASONE 250/50 INH SCH (07:00)
[2017-10-11] MEDS: FORMOTEROL FUMARATE 20 MCG/2 ML VIAL IH SCH (07:00)
[2017-10-11] MEDS ORDERED: BUMETANIDE INJ 0.25MG/ML 4ML VIAL IV STA (07:31)
[2017-10-11 07:34] LABS: MAGNESIUM 1.3 MG/DL (1.3-2.1)
[2017-10-11] MEDS ORDERED: SODIUM CHLORIDE 0.9% 250ML 250 ML IV ONE (07:45)
[2017-10-11] MEDS ORDERED: CALCIUM GLUCONATE 10% INJ 4.65 MEQ in SODIUM CHLORIDE 0.9% 50ML 50 ML IV ONE (07:45)
[2017-10-11] MEDS: SODIUM CHLORIDE 0.9% 1000ML 1,000 ML IV SCH ×2 (08:56→21:05)
[2017-10-11] MEDS ORDERED: CALCIUM GLUCONATE 10% INJ 4.65 MEQ in SODIUM CHLORIDE 0.9% 50ML 50 ML IV SCH (09:00)
[2017-10-11] MEDS ORDERED: HEPARIN SOD (PORCINE) 1000 UNIT/ML SDV ONE (09:57)
[2017-10-11] MEDS ORDERED: MAGNESIUM SULFATE 2GM/50ML 50 ML IV SCH (10:45)
[2017-10-11] MEDS ORDERED: AMIODARONE HCL 150 MG in DEXTROSE 5% 100ML 100 ML IV SCH (13:45)
[2017-10-11 13:50] LABS: BAND NEUTROPHILS % (MANUAL) 11 %; LYMPHOCYTES % (MANUAL) 3 % (19-48); MONOCYTES % (MANUAL) 1 % (3.4-9.0); NEUTROPHILS % (MANUAL) 85 % (40-74); RBC MORPHOLOGY COMMENT NORMAL
[2017-10-11 13:51] LABS: PLATELET ESTIMATE SLIGHTLY DECREASED; PLATELET MORPHOLOGY COMMENT NORMAL
[2017-10-11] MEDS: IPRATROPIUM BROMIDE 0.02% 2.5 ML NEB NEB SCH ×2 (15:00→22:38)
[2017-10-11] MEDS: ENOXAPARIN SOD INJ 60 MG/0.6 ML SYR SC SCH (15:07)
[2017-10-11] MEDS: FLUCONAZOLE 200 MG/100 ML 100 ML IV SCH (15:48)
[2017-10-11] MEDS: VANCOMYCIN 1GM/NS 250 ML 250 ML IV SCH (15:48)
--- NOTE | 2017-10-11 17:43 | Progress Note ---
DATE: SUBJECTIVE: Ms. Paz remained in ICU in critical condition. She has atrial fibrillation. Dr. Adam is following, he is aware of . Patient otherwise remains in ICU on a ventilator. Discussed with the family. PHYSICAL EXAMINATION GENERAL: She is intubated, sedated. VITAL SIGNS: Stable. Currently afebrile. Her T-max have been 100.4 twenty four hours ago. HEENT: She does not appear icteric. Normocephalic. NECK: Supple. CHEST: Few crackles bilateral. HEART: S1 and S2. No S3, S4, murmur, or arrhythmia. ABDOMEN: Soft. Bowel sounds hypoactive. EXTREMITIES: No edema. LABS: White count today is 17.8, which is down from yesterday 26.9. Hemoglobin is 7, which is down from 11.7. Sodium 140, potassium 3.5, creatinine 1.55. The patient did undergo dialysis today. No growth in the cultures. IMPRESSION 1. Sepsis. 2. Peritonitis with multiorgan failure. Family aware. 3. Anemia, glwch-cf-xoalcog. 1. Acute tubular necrosis probably chronic kidney disease. 2. History of rheumatoid arthritis. Continue with cefepime, metronidazole, and vancomycin. Re-dose after dialysis. Recheck CBC. Recheck chem panel. Blood transfusion. Will follow. Job#: [id number] GEORGE
[2017-10-11] MEDS ORDERED: DEXTROSE 50% SYRINGE 50 ML IV PRN (17:45)
[2017-10-11 18:03] LABS: HEMATOCRIT 33.8 % (34.2-44.1); HEMOGLOBIN 11.3 g/dL (12.0-16.0)
[2017-10-11] MEDS ORDERED: DIGOXIN INJ 0.25 MG/ML 2 ML AMP IV PRN (20:00)
[2017-10-11] MEDS ORDERED: METOPROLOL TARTRATE INJ 1 MG/ML VIAL IV ONE (20:15)
[2017-10-11] MEDS ORDERED: ALBUMIN 5% 250ML IV ONE (20:30)
[2017-10-12] VITALS (80 sets, daily range): BP systolic 84–155; BP diastolic 46–77
[2017-10-12] MEDS: SODIUM CHLORIDE 0.9% 250ML IRRIG IR SCH ×6 (02:55→23:00)
[2017-10-12] MEDS: CEFEPIME HCL 1 GM VIAL IV SCH (04:55)
[2017-10-12] MEDS: PANTOPRAZOLE 40 MG 10ML VIAL IV SCH (05:20)
[2017-10-12] MEDS: METRONIDAZOLE 500MG/NS 100ML 100 ML IV SCH ×2 (05:20→14:04)
[2017-10-12] MEDS: HYDROCORTISONE SOD SUCCINATE 100 MG VIAL IV SCH ×3 (05:20→20:50)
[2017-10-12] MEDS: HYDROMORPHONE 1MG/1ML INJ IV PRN (05:55)
[2017-10-12] MEDS: HYDROMORPHONE 20MG/ NS 100ML IV PRN (05:55)
[2017-10-12] MEDS: SODIUM CHLORIDE 0.9% 1000ML 1,000 ML IV SCH ×2 (06:15→23:45)
--- NOTE | 2017-10-12 06:21 | Diagnostic Imaging Report ---
CHEST SINGLE (PORTABLE), 10/12/2017 7:00 AM Technique: CHEST SINGLE (PORTABLE) Comparison: Previous day Clinical history: Shortness of breath Findings: See Impression Impression: 1. Lines/Tubes: ET tube 3.5 cm above the ana m. Stable right IJ CVC over the SVC and subdiaphragmatic NG tube. 2. Increased left basilar atelectasis or consolidation with small effusion. Probable small right effusion. Signed by: Dr Heidi Fabian MD on 10/12/2017 6:17 AM
[2017-10-12 06:23] LABS: BASOPHILS # (AUTO) 0.1 (0.0-0.1); BASOPHILS % 0.4 % (0.0-1.0); EOSINOPHILS % 0.1 % (0.0-6.0); HEMATOCRIT 30.4 % (34.2-44.1); HEMOGLOBIN 10.1 g/dL (12.0-16.0); LYMPHOCYTES # (AUTO) 0.3 (1.0-3.2); LYMPHOCYTES % 1.5 % (18.0-39.1); MEAN CORPUSCULAR HEMOGLOBIN 29.2 pg (28-32); MEAN CORPUSCULAR HGB CONC 33.2 g/dL (31-35); MEAN CORPUSCULAR VOLUME 87.9 fL (81-99); MONOCYTES # (AUTO) 0.6 (0.2-0.8); MONOCYTES % 3.5 % (4.4-11.3); NEUTROPHILS # (AUTO) 16.5 (2.1-6.9); NEUTROPHILS % 93.4 % (38.7-80.0); PLATELET COUNT 53 x10e3/uL (140-360); RED BLOOD COUNT 3.46 x10e6/uL (3.6-5.1); RED CELL DISTRIBUTION WIDTH 14.6 % (11.7-14.4)
[2017-10-12 06:53] LABS: ALBUMIN 2.6 g/dL (3.5-5.0); ALBUMIN/GLOBULIN RATIO 2.2 (0.8-2.0); ANION GAP 12.9 mmol/L (8-16); CREATININE, SERUM 1.75 mg/dL (0.57-1.11); POTASSIUM 3.9 mmol/L (3.5-5.1)
[2017-10-12] MEDS: VASOPRESSIN 100 UNIT in DEXTROSE 5% 100ML 100 ML IV PRN (07:00)
[2017-10-12] MEDS: BECLOMETHASONE DIP 80MCG 7.3 GM INH INH SCH (07:04)
[2017-10-12] MEDS: IPRATROPIUM BROMIDE 0.02% 2.5 ML NEB NEB SCH ×3 (07:04→23:20)
[2017-10-12 07:25] LABS: MAGNESIUM 1.4 MG/DL (1.3-2.1); PHOSPHORUS 2.8 MG/DL (2.3-4.7)
[2017-10-12 07:26] LABS: ANISOCYTOSIS SLIGHT; BAND NEUTROPHILS % (MANUAL) 3 %; LYMPHOCYTES % (MANUAL) 2 % (19-48); METAMYELOCYTES % (MANUAL) 1 % (0-0); MONOCYTES % (MANUAL) 1 % (3.4-9.0); NEUTROPHILS % (MANUAL) 93 % (40-74); PLATELET ESTIMATE MODERATELY DECREASED; PLATELET MORPHOLOGY COMMENT NORMAL; RBC MORPHOLOGY COMMENT NORMAL
[2017-10-12] MEDS: NOREPINEPHRINE BITARTRATE/ NS 250 ML IV PRN (08:30)
[2017-10-12] MEDS: ENOXAPARIN SOD INJ 60 MG/0.6 ML SYR SC SCH ×2 (09:00→09:06)
[2017-10-12] MEDS ORDERED: BUMETANIDE INJ 0.25MG/ML 4ML VIAL IV STA (13:57)
[2017-10-12] MEDS: BUMETANIDE 10 MG in SODIUM CHLORIDE 0.9% 100 ML 60 ML IV SCH (15:21)
[2017-10-12] MEDS: FLUCONAZOLE 200 MG/100 ML 100 ML IV SCH (15:22)
[2017-10-12] MEDS ORDERED: MEROPENEM 500MG 500 MG in SODIUM CHLORIDE 0.9% 50ML 50 ML IV SCH (17:00)
[2017-10-12] MEDS: MEROPENEM 500 MG VIAL IV SCH (17:55)
[2017-10-12] MEDS ORDERED: HYDROMORPHONE 100 ML IV PRN (19:15)
--- NOTE | 2017-10-12 19:39 | Progress Note ---
DATE: Ms. Paz remains in ICU on a ventilator. Met with the family again and answered all their questions. She is sedated on low dose vasopressors. PHYSICAL EXAMINATION VITALS: Stable. Temperature 98. The last temperature was on October 11, 2017, of 100.4. Her heart rate seems to be slower at 84 and irregularly irregular. Her respirations are 16. Negative cultures so far. LAB: White count is 17.62, hemoglobin 10.1 and platelets of 53,000 today. MEDICATIONS: She is on fluconazole, metronidazole, cefepime, and vancomycin. IMPRESSION 1. Sepsis vaginitis: There is some sign of improvement. Remains critically ill. We are weaning down the vasopressors, which is reassuring. Temperature is coming down. 2. Thrombocytopenia, probably drug related: Will discontinue vancomycin and cefepime and metronidazole, and just do meropenem for the time being. Recheck CBC on a daily basis. 3. Respiratory failure. 4. Chronic kidney disease with component of acute tubular necrosis. 5. Discussed with the family. 6. Anemia of chronic disease. Job#: [id number] ALYSSA
[2017-10-12] MEDS ORDERED: CENTRAL TPN FORMULA 1 BAG IV SCH (20:00)
[2017-10-13] VITALS (96 sets, daily range): BP systolic 81–157; BP diastolic 48–78
[2017-10-13] MEDS: SODIUM CHLORIDE 0.9% 250ML IRRIG IR SCH ×6 (02:17→23:00)
[2017-10-13] MEDS: PANTOPRAZOLE 40 MG 10ML VIAL IV SCH (05:30)
[2017-10-13 06:12] LABS: BASOPHILS # (AUTO) 0.1 (0.0-0.1); BASOPHILS % 0.4 % (0.0-1.0); HEMATOCRIT 35.7 % (34.2-44.1); HEMOGLOBIN 11.7 g/dL (12.0-16.0); LYMPHOCYTES # (AUTO) 0.4 (1.0-3.2); LYMPHOCYTES % 1.4 % (18.0-39.1); MEAN CORPUSCULAR HGB CONC 32.8 g/dL (31-35); MEAN CORPUSCULAR VOLUME 88.6 fL (81-99); MONOCYTES # (AUTO) 0.7 (0.2-0.8); MONOCYTES % 2.7 % (4.4-11.3); NEUTROPHILS # (AUTO) 25.1 (2.1-6.9); NEUTROPHILS % 94.4 % (38.7-80.0); RED BLOOD COUNT 4.03 x10e6/uL (3.6-5.1)
[2017-10-13 06:33] LABS: PLATELET COUNT 43 x10e3/uL (140-360)
[2017-10-13 06:45] LABS: ALBUMIN 2.6 g/dL (3.5-5.0); ALBUMIN/GLOBULIN RATIO 1.4 (0.8-2.0); ANION GAP 14.7 mmol/L (8-16); CREATININE, SERUM 2.78 mg/dL (0.57-1.11); POTASSIUM 3.7 mmol/L (3.5-5.1)
[2017-10-13 06:48] LABS: CALCIUM 6.7 mg/dL (8.4-10.2)
[2017-10-13 06:56] LABS: MAGNESIUM 1.9 MG/DL (1.3-2.1); PHOSPHORUS 3.3 MG/DL (2.3-4.7)
[2017-10-13] MEDS: IPRATROPIUM BROMIDE 0.02% 2.5 ML NEB NEB SCH ×3 (07:05→15:00)
[2017-10-13 07:13] LABS: BILIRUBIN,DIRECT 0.9 mg/dL (0.0-0.5); CHOL/HDL RATIO 7.3 (3.0-3.6)
[2017-10-13 07:24] LABS: BAND NEUTROPHILS % (MANUAL) 3 %; LYMPHOCYTES % (MANUAL) 3 % (19-48); NUCLEATED RED BLOOD CELLS 1
[2017-10-13 07:26] LABS: ANISOCYTOSIS SLIGHT; PLATELET ESTIMATE MODERATELY DECREASED; PLATELET MORPHOLOGY COMMENT NORMAL; RBC MORPHOLOGY COMMENT NORMAL
[2017-10-13 07:27] LABS: MONOCYTES % (MANUAL) 1 % (3.4-9.0); NEUTROPHILS % (MANUAL) 93 % (40-74)
[2017-10-13] MEDS: HYDROCORTISONE SOD SUCCINATE 100 MG VIAL IV SCH ×2 (08:44→20:40)
[2017-10-13] MEDS ORDERED: CALCIUM GLUCONATE 10% INJ 4.65 MEQ in SODIUM CHLORIDE 0.9% 50ML 50 ML IV ONE (09:15)
[2017-10-13] MEDS: BECLOMETHASONE DIP 80MCG 7.3 GM INH INH SCH (10:45)
[2017-10-13] MEDS: BUMETANIDE 10 MG in SODIUM CHLORIDE 0.9% 100 ML 60 ML IV SCH ×4 (11:00→23:30)
--- NOTE | 2017-10-13 11:58 | Diagnostic Imaging Report ---
PROCEDURE: A single AP view of the chest. COMPARISON: Patients [facility], DX, CHEST SINGLE (PORTABLE), 10/13/2017, 5:43. INDICATIONS: CENTRAL LINE PLACEMENT FINDINGS: See impression. IMPRESSION: 1. right-sided central line has distal tip projecting in the distal SVC/cavoatrial junction. Unchanged right IJ dialysis catheter. Enteric tube is again noted, which has its side-port near the GE junction and further advancement is recommended. 2. No interval change in small left pleural effusion and left retrocardiac opacity, which may represent atelectasis or pneumonia. Jesus Covarrubias M.D. Dictated by: Jesus Covarrubias M.D. on 10/13/2017 at 11:59 Electronically approved by: Jesus Covarrubias M.D. on 10/13/2017 at 11:59
[2017-10-13] MEDS: SODIUM CHLORIDE 0.9% 1000ML 1,000 ML IV SCH (12:40)
[2017-10-13] MEDS ORDERED: DEXTROSE 50% SYRINGE 50 ML IV PRN (13:00)
--- NOTE | 2017-10-13 13:05 | Diagnostic Imaging Report ---
PROCEDURE:ULTRASOUND GUIDANCE FOR VASCULAR ACCESS COMPARISON:None. INDICATIONS:Central Line Placement FINDINGS:Right internal jugular vein is noted to be patent. Ultrasound guidance was utilized for access for central venous catheter placement. CONCLUSION: Patent right internal jugular vein. Successful ultrasound guidance for central venous catheter placement. Dictated by: Hardik Ramos M.D. on 10/13/2017 at 13:06 Electronically approved by: Hardik Ramos M.D. on 10/13/2017 at 13:06
[2017-10-13] MEDS: INSULIN REGULAR, HUMAN 100 UNIT/1 ML 3ML VIAL SQ SCH ×2 (13:06→18:43)
--- NOTE | 2017-10-13 13:07 | Diagnostic Imaging Report ---
EXAM: CHEST SINGLE (PORTABLE), AP 1 view INDICATION: Intubated COMPARISON: AP view of the chest October 12, 2017 FINDINGS: LINES/TUBES: Stable position of endotracheal tube, nasal/orogastric tube and right internal jugular vein temporary hemodialysis catheter. LUNGS: Stable left lower lobe atelectasis/consolidation. PLEURA: Stable small left pleural effusion. Possible trace right pleural effusion. HEART AND MEDIASTINUM: Stable appearance. BONES AND SOFT TISSUES: No acute findings. IMPRESSION: No interval change. Signed by: Dr. Yudi Garcia M.D. on 10/13/2017 6:19 AM
--- NOTE | 2017-10-13 13:20 | Diagnostic Imaging Report ---
PROCEDURE:NON-TUNNELLED CVC CATH PLACMNT COMPARISON:None. INDICATIONS: Need for intravenous access. COMPLICATIONS: None. MEDICATIONS: None. BLOOD LOSS: Less than 2 cc. PROCEDURE: The procedure was performed at the bedside in the intensive care unit. The patient was placed supine. Focused sonographic evaluation demonstrated a patent compressible right internal jugular vein. The right neck was prepped and draped in the usual sterile fashion. 1% lidocaine was infused into the subcutaneous tissues for local anesthesia. Utilizing direct sonographic guidance, a 21 gauge needle was advanced into the right internal jugular vein. A 0.018 inch wire was advanced through the wire. An access sheath was placed over the wire to secure the vascular access. The wire was upsized to a 0.035 inch wire. Single dilation was performed over the wire. A triple lumen temporary central venous catheter was advanced over the wire. The wire was removed. The catheter lumens demonstrated proper function with aspiration and flush of sterile saline. The catheter was secured to the skin with 3-0 Ethilon suture. The catheter was flushed with sterile saline. Sterile dressing was applied. No immediate complication. The patient tolerated the procedure well. The patient remained in the intensive care unit in stable unchanged condition. CONCLUSION: Successful placement of a right internal jugular temporary central venous catheter utilizing ultrasound guidance. Dictated by: Hardik Ramos M.D. on 10/13/2017 at 13:20 Electronically approved by: Hardik Ramos M.D. on 10/13/2017 at 13:20
--- NOTE | 2017-10-13 14:09 | Diagnostic Imaging Report ---
Exam: Head CT without contrast History: AMS Comparison studies: None Technique: Axial images were obtained from the skull base to the vertex. Coronal and sagittal images reconstructed from the axial data. Intravenous contrast: None Findings: Scalp: No abnormalities. Bones: No fractures, blastic or lytic lesions. Brain sulci: Mildly prominent. Ventricles: Mild compensatory dilatation. No hydrocephalus. Extra-axial spaces: No masses, no fluid collection. Parenchyma: No mass, acute hemorrhage or acute cortical vascular insults. Confluent hypodensities throughout the supratentorial white matter are nonspecific but most compatible with chronic small vessel ischemic changes. Sellar/suprasellar region: No abnormalities. Craniocervical junction: Patent foramen magnum. No Chiari one malformation. Incidental findings: Atherosclerotic calcifications in the carotid siphons. IMPRESSION: 1. No acute intracranial abnormality is. Specifically, no mass, acute hemorrhage or acute cortical vascular insults. 2. Mild generalized volume loss. 3. Severe chronic microvascular ischemic changes. Signed by: Dr. Leopoldo Doherty M.D. on 10/13/2017 2:05 PM
[2017-10-13] MEDS: MEROPENEM 500 MG VIAL IV SCH (17:49)
[2017-10-13] MEDS: CENTRAL TPN FORMULA 1 BAG IV SCH (20:40)
[2017-10-14] VITALS (136 sets, daily range): BP systolic 79–196; BP diastolic 42–122
[2017-10-14] MEDS: INSULIN REGULAR, HUMAN 100 UNIT/1 ML 3ML VIAL SQ SCH ×5 (00:50→23:45)
[2017-10-14] MEDS: SODIUM CHLORIDE 0.9% 1000ML 1,000 ML IV SCH ×2 (02:25→15:45)
[2017-10-14] MEDS: SODIUM CHLORIDE 0.9% 250ML IRRIG IR SCH ×6 (02:45→22:37)
[2017-10-14] MEDS: PANTOPRAZOLE 40 MG 10ML VIAL IV SCH (05:45)
[2017-10-14] MEDS: BECLOMETHASONE DIP 80MCG 7.3 GM INH INH SCH (06:00)
--- NOTE | 2017-10-14 06:08 | Diagnostic Imaging Report ---
EXAM: CHEST SINGLE (PORTABLE), AP 1 view INDICATION: Intubated COMPARISON: AP view of the chest October 13, 2017 FINDINGS: LINES/TUBES: Stable position of endotracheal tube, right internal jugular vein temporary hemodialysis catheter and partially visualized nasal/orogastric tube. LUNGS: Stable left lower lobe atelectasis versus consolidation. PLEURA: Possible small layering bilateral pleural effusions. HEART AND MEDIASTINUM: Stable appearance. BONES AND SOFT TISSUES: No interval change. IMPRESSION: No interval change. Signed by: Dr. Yudi Garcia M.D. on 10/14/2017 6:04 AM
[2017-10-14 06:52] LABS: BASOPHILS # (AUTO) 0.2 (0.0-0.1); BASOPHILS % 0.5 % (0.0-1.0); HEMATOCRIT 40.1 % (34.2-44.1); HEMOGLOBIN 13.1 g/dL (12.0-16.0); LYMPHOCYTES # (AUTO) 0.4 (1.0-3.2); LYMPHOCYTES % 1.2 % (18.0-39.1); MEAN CORPUSCULAR HEMOGLOBIN 29.4 pg (28-32); MEAN CORPUSCULAR HGB CONC 32.7 g/dL (31-35); MEAN CORPUSCULAR VOLUME 89.9 fL (81-99); MONOCYTES # (AUTO) 1.2 (0.2-0.8); MONOCYTES % 3.6 % (4.4-11.3); NEUTROPHILS # (AUTO) 30.5 (2.1-6.9); NEUTROPHILS % 92.9 % (38.7-80.0); PLATELET COUNT 52 x10e3/uL (140-360); RED BLOOD COUNT 4.46 x10e6/uL (3.6-5.1); RED CELL DISTRIBUTION WIDTH 15.7 % (11.7-14.4)
[2017-10-14 07:06] LABS: ALBUMIN 2.4 g/dL (3.5-5.0); ALBUMIN/GLOBULIN RATIO 1.1 (0.8-2.0); ANION GAP 16.5 mmol/L (8-16); CALCIUM 7.2 mg/dL (8.4-10.2); CREATININE, SERUM 3.79 mg/dL (0.57-1.11); POTASSIUM 3.5 mmol/L (3.5-5.1)
[2017-10-14 07:31] LABS: PHOSPHORUS 4.3 MG/DL (2.3-4.7)
[2017-10-14] MEDS: IPRATROPIUM BROMIDE 0.02% 2.5 ML NEB NEB SCH ×4 (07:46→23:30)
[2017-10-14 08:04] LABS: LYMPHOCYTES % (MANUAL) 2 % (19-48); METAMYELOCYTES % (MANUAL) 1 % (0-0); MONOCYTES % (MANUAL) 2 % (3.4-9.0); NEUTROPHILS % (MANUAL) 94 % (40-74)
[2017-10-14 08:05] LABS: ANISOCYTOSIS SLIGHT; RBC MORPHOLOGY COMMENT NORMAL
[2017-10-14 08:06] LABS: PLATELET ESTIMATE ADEQUATE; PLATELET MORPHOLOGY COMMENT NORMAL
[2017-10-14] MEDS: HYDROCORTISONE SOD SUCCINATE 100 MG VIAL IV SCH ×2 (09:00→21:10)
[2017-10-14] MEDS: BUMETANIDE 10 MG in SODIUM CHLORIDE 0.9% 100 ML 60 ML IV SCH ×3 (10:28→21:36)
[2017-10-14] MEDS ORDERED: ALBUMIN HUMAN 100 ML IV ONE (11:11)
[2017-10-14] MEDS ORDERED: HEPARIN SOD (PORCINE) 1000 UNIT/ML SDV ONE (13:09)
--- NOTE | 2017-10-14 14:53 | Diagnostic Imaging Report ---
EXAMINATION: MRI of the brain without contrast. HISTORY: Anoxic brain injury, exacerbation of COPD, severe leukocytosis with lymphocytosis COMPARISON: Head CT on 10/13/2017 TECHNIQUE: Sagittal T2; axial DWI, T2, FLAIR, T1-IR, T2 gradient echo; coronal FLAIR. IMAGE QUALITY: Adequate. FINDINGS: Parenchyma: 1. Severe confluent periventricular, venegas radiata and centrum semiovale white matter T2 and FLAIR hyperintense foci, most likely nonspecific chronic microvascular ischemic changes. 2. Prominent dilatation and irregularity of the left atrium and left occipital horn, with surrounding white matter volume loss and hyperintensity, likely sequela from remote, perhaps anoxic ischemic injury. 3. No mass, hemorrhage, acute or chronic infarcts. Skull: Unremarkable. Vessels: Expected flow voids present in the major arteries and dural sinuses. Extra-axial spaces: No abnormal signal intensity or mass effect. Brain volume: Within normal limits for age. Ventricles: No hydrocephalus or displacement. Foramen magnum: Unremarkable. Sella: Unremarkable. Paranasal / mastoid sinuses: Nonspecific partial opacification of the bilateral mastoid air cells, perhaps effusion. Partially visualized orotracheal, nasogastric tube and retained secretions in the oropharynx IMPRESSION: 1. No acute infarct. 2. Severe confluent chronic microvascular ischemic changes. 3. Chronic ischemic changes in the left occipital white matter as detailed above. Signed by: Dr. Yohana Fu M.D. on 10/14/2017 2:49 PM
--- NOTE | 2017-10-14 15:47 | Consultation ---
DATE OF CONSULTATION: October 14, 2017 NEUROLOGY CONSULTATION HISTORY OF PRESENT ILLNESS: Ms. Paz is a 77 y.o. woman who was admitted to [facility] on October 09, 2017, after she presented to the emergency center with a 1-week history of progressively worsening abdominal pain secondary to a perforated colon (perforated sigmoid diverticulitis with pelvic abscess). Once the diagnosis was made, the patient was taken for an urgent exploratory laparotomy with a sigmoid colectomy, colostomy, and formation of Vargas's pouch. Per the operative report, the patient tolerated the procedure and was discharged to the recovery room in stable condition. Ms. Paz was subsequently admitted to the intensive care unit. In the intensive care unit, the patient has been septic with multiorgan failure (respiratory failure, acute kidney injury, acute hepatic injury). For several days, the patient was sedated with a continuous infusion of hydromorphone. This medication was reportedly discontinued on the evening of October 13, 2017. However, review of the electronic medical records reveals the order for discontinuation was placed at 9:49 on October 14, 2017. After sedation with hydromorphone was discontinued, the patient remained poorly responsive. A neurology consult was requested to evaluate for anoxic brain injury. History is obtained from the patient's eldest daughter who is at the bedside. REVIEW OF SYSTEMS: Unable to obtain secondary to the patient being intubated and unresponsive. PAST MEDICAL HISTORY: Hyperlipidemia, cardiac arrhythmia (atrial fibrillation), COPD on home oxygen, rheumatoid arthritis, shingles, diverticulitis, hepatitis C. PAST SURGICAL HISTORY: As per history of present illness. Hysterectomy. PAST HOSPITALIZATIONS: Surgeries and procedures as listed above. Childbirth twice. Respiratory infection in 2016. FAMILY HISTORY: The patient's paternal and maternal grandparents are . Their medical histories are unknown. The patient's father is . He had dementia. The patient's mother is from colon cancer. She had COPD. The patient has 1 sister who is alive. She has rheumatoid arthritis and ulcerative colitis. A 2nd sister is at the age of 42 from breast cancer. A brother is from complications from COPD. Ms. Paz has 2 daughters who are healthy. SOCIAL HISTORY: The patient was 3 years ago. Ms. Paz completed either the 10th or the 11th grade. 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 The patient does have a history of tobacco use. She began smoking in her early teens and quit in the early . When she was smoking, the patient smoked 2 packs per day. She quit smoking when she began to develop symptoms of COPD. The patient does not currently consume alcohol. She does have a prior history of social alcohol use. There is no reported current or prior history of recreational drug use. HOME MEDICATIONS: ProAir inhaler, albuterol sulfate nebulizer, aspirin 81 mg by mouth daily, multivitamin by mouth daily, formoterol fumarate nebulizer, Plaquenil 200 mg by mouth twice daily, Claritin-D 1 tablet by mouth daily, metoprolol 25 mg by mouth daily, montelukast sodium 10 mg by mouth daily, prednisone 2.5 mg by mouth daily, Spiriva inhaled daily, Advair, Citracal, fish oil, Metamucil. ALLERGIES: MS. PAZ IS ALLERGIC TO ALENDRONATE SODIUM, CALCITONIN, CODEINE, ROFLUMILAST, AND THEOPHYLLINE. THE PATIENT IS ALLERGIC TO PINEAPPLE. SHE HAS A KNOWN LATEX ALLERGY. THE PATIENT'S DAUGHTER IS UNCERTAIN IF THE PATIENT HAS ALLERGIES TO CONTRAST MATERIALS. PHYSICAL EXAMINATION VITAL SIGNS: Height 63 inches, weight 122 pounds. BMI is 21.7 kg per meter squared. Pulse 99 beats per minute. Respiratory rate 16 to 17 breaths per minute. Ventilator settings: Oxygen concentration 35%, PEEP 5 cm water, respiratory rate 16, tidal volume 450 mL. GENERAL: The patient is unresponsive. HEENT: Normocephalic, atraumatic. Pupils are equal, round, and sluggishly reactive to light. Moist mucous membranes. NECK: Supple. No appreciable thyromegaly. No appreciable carotid bruits. CARDIOVASCULAR: S1, S2, regular rate, irregular rhythm. No murmurs, rubs, or gallops. RESPIRATORY: Intubated. Clear to auscultation bilaterally. No wheezes, rhonchi, or rales. EXTREMITIES: The skin is warm and dry. No clubbing or cyanosis. There is nonpitting edema in all 4 extremities. The posterior tibial and dorsalis pedis pulses are trace and symmetric. SKIN: No rashes or lesions. NEUROLOGIC MEMORY/ATTENTION: The patient is unresponsive to verbal and noxious stimuli. CRANIAL NERVES: Pupils are 3 mm and sluggishly reactive. Corneal, oculocephalic, and gag reflexes are intact. The face appears symmetric. STRENGTH: Bulk is normal. There is no response to nail bed pressure in either the arms or the legs. Tone is decreased throughout. DTRS: Deep tendon reflexes are absent throughout except for the right patellar reflex, which is 1+. Plantar responses are mute bilaterally. SENSATION: As per motor exam. CEREBELLAR: Unable to assess as the patient is unresponsive. GAIT: Unable to assess as the patient is intubated and unresponsive. SPEECH: Unable to assess as the patient is intubated and unresponsive. INVOLUNTARY MOVEMENTS: None. PRONATOR DRIFT: As per motor exam. LABORATORY DATA: Sodium 143, potassium 3.5, chloride 106, carbon dioxide 24, anion gap 16.5, BUN 96, creatinine 3.79, estimated GFR 12, WTV-ti-hlsskxkyvz ratio 25. Serum glucose 244, 233, 265, 249. Calcium 7.2, phosphorus 4.3, magnesium 2.0. Total bilirubin 1.2, AST 169, ALT 1619, alkaline phosphatase 329, total protein 4.5, albumin 2.4, globulin 2.1, tyocihp-or-lxbpqaaz ratio 1.1. CBC with differential and platelets reveals a white blood cell count of 32.84 with 92.9% neutrophils, 1.2% lymphocytes, 3.6% monocytes, 0.0% eosinophils and 0.5% basophils. The hemoglobin and the hematocrit are 13.1 and 40.1, respectively. The platelet count is 52. Hepatitis B surface antigen is pending. Hepatitis B surface antibody is 11.6. Influenza types A-B antigen negative. CT BRAIN WITHOUT CONTRAST OCTOBER 13, 2017: On my review, there is no evidence of large territorial ischemia, hemorrhage, mass, or mass effect. There is diffuse cerebral atrophy, appropriate for age. There are nonspecific scattered hyperdense foci compatible with moderate to severe chronic small-vessel ischemic disease. ASSESSMENT AND PLAN: Ms. Paz is a 77-year-old woman admitted to [facility] on October 09, 2017, with progressively worsening abdominal pain due to perforation of the colon (sigmoid diverticulitis with pelvic abscess). The patient is status post exploratory laparotomy with sigmoid colectomy, colostomy, and formation of Vargas's pouch. Ms. Paz is currently admitted to the intensive care unit with sepsis and multiorgan failure. For several days, the patient was sedated with a continuous hydromorphone drip. This medication has been discontinued, though there is some confusion as to when the medication was discontinued. The patient's family reports the medication was discontinued on the evening of October 13, 2017. The patient's nurse believes the medicine was discontinued at 5:30 in the morning on October 14, 2017. The order to discontinue hydromorphone was placed at 9:49 in the morning on October 14, 2017. On neurological examination, the patient's brainstem reflexes are intact. Her pupils are equal at 3 mm and sluggishly reactive to light. Corneal, oculocephalic, and gag reflexes are intact. The patient intermittently breathes over the vent with a respiratory rate of either 17 or 18 breaths per minute. The patient's laboratory data and neuroimaging have been reviewed and are documented above. Ms. Paz's brainstem is intact. Unfortunately, the patient is not responsive to either verbal or noxious stimuli, indicating possible impairment of higher cortical function. Given the patient's recent medical history, this impairment of higher cortical function may be due to diffuse hypoxic ischemic brain injury. Recommendations are as follows: 1. MRI of the brain without contrast to assess for hypoxic ischemic injury. 2. Withhold all sedating medications as these medications will worsen the patient's sensorium. 3. Defer treatment of the remaining medical comorbidities to the primary and other services following the patient. Thank you for the consultation. I will continue to follow this patient while she remains in the hospital. Time spent: 70 minutes. Job#: [id number]
[2017-10-14] MEDS: MEROPENEM 500 MG VIAL IV SCH (17:39)
[2017-10-14] MEDS: CENTRAL TPN FORMULA 1 BAG IV SCH (20:20)
[2017-10-15] VITALS (91 sets, daily range): BP systolic 103–193; BP diastolic 54–118
[2017-10-15] MEDS ORDERED: METOPROLOL TARTRATE INJ 1 MG/ML VIAL IV PRN (01:15)
[2017-10-15] MEDS: HYDROMORPHONE 1MG/1ML INJ IV PRN ×4 (01:15→23:01)
[2017-10-15] MEDS: SODIUM CHLORIDE 0.9% 250ML IRRIG IR SCH ×6 (02:32→22:41)
[2017-10-15] MEDS: SODIUM CHLORIDE 0.9% 1000ML 1,000 ML IV SCH ×2 (05:05→18:25)
[2017-10-15] MEDS: INSULIN REGULAR, HUMAN 100 UNIT/1 ML 3ML VIAL SQ SCH ×4 (05:18→23:48)
[2017-10-15] MEDS: IPRATROPIUM BROMIDE 0.02% 2.5 ML NEB NEB SCH ×2 (05:57→14:22)
[2017-10-15] MEDS: PANTOPRAZOLE 40 MG 10ML VIAL IV SCH (05:57)
[2017-10-15] MEDS: BECLOMETHASONE DIP 80MCG 7.3 GM INH INH SCH (06:00)
[2017-10-15 06:01] LABS: ALBUMIN 2.8 g/dL (3.5-5.0); ALBUMIN/GLOBULIN RATIO 1.5 (0.8-2.0); ANION GAP 15.4 mmol/L (8-16); CALCIUM 7.4 mg/dL (8.4-10.2); CREATININE, SERUM 2.68 mg/dL (0.57-1.11); MAGNESIUM 2.5 MG/DL (1.3-2.1); POTASSIUM 3.4 mmol/L (3.5-5.1)
--- NOTE | 2017-10-15 06:19 | Diagnostic Imaging Report ---
EXAM: CHEST SINGLE (PORTABLE), AP 1 view INDICATION: Intubated COMPARISON: AP view of the chest October 14, 2017 FINDINGS: LINES/TUBES: Stable appearance of endotracheal tube, right internal jugular vein temporary hemodialysis catheter, right subclavian central line and nasal/orogastric tube. LUNGS: Stable left lower lobe atelectasis versus consolidation. PLEURA: Probable small layering bilateral pleural effusions. HEART AND MEDIASTINUM: Normal size and contour. BONES AND SOFT TISSUES: No acute findings. IMPRESSION: No interval change. Signed by: Dr. Yudi Garcia M.D. on 10/15/2017 6:15 AM
[2017-10-15] MEDS: METOPROLOL TARTRATE INJ 1 MG/ML VIAL IV PRN ×2 (07:20→13:43)
[2017-10-15 07:34] LABS: BASOPHILS # (AUTO) 0.2 (0.0-0.1); BASOPHILS % 0.5 % (0.0-1.0); HEMATOCRIT 35.4 % (34.2-44.1); HEMOGLOBIN 11.8 g/dL (12.0-16.0); LYMPHOCYTES # (AUTO) 0.2 (1.0-3.2); LYMPHOCYTES % 0.8 % (18.0-39.1); MEAN CORPUSCULAR HEMOGLOBIN 29.6 pg (28-32); MEAN CORPUSCULAR HGB CONC 33.3 g/dL (31-35); MEAN CORPUSCULAR VOLUME 88.7 fL (81-99); MONOCYTES # (AUTO) 1.5 (0.2-0.8); MONOCYTES % 5.2 % (4.4-11.3); NEUTROPHILS % 89.8 % (38.7-80.0); RED BLOOD COUNT 3.99 x10e6/uL (3.6-5.1); RED CELL DISTRIBUTION WIDTH 15.6 % (11.7-14.4)
[2017-10-15 07:56] LABS: PLATELET COUNT 41 x10e3/uL (140-360)
[2017-10-15] MEDS ORDERED: POTASSIUM CHLORIDE 20MEQ/100ML 100 ML IV ONE (08:00)
[2017-10-15 09:29] LABS: ABG HCO3 26 mmol/L (23-28); ABG PCO2 40 mmHg (41-51); ABG PH 7.42 (7.31-7.41); ABG PO2 94 mmHg (80-105)
[2017-10-15] MEDS: HYDROCORTISONE SOD SUCCINATE 100 MG VIAL IV SCH ×2 (09:54→21:10)
[2017-10-15 10:49] LABS: BAND NEUTROPHILS % (MANUAL) 4 %; LYMPHOCYTES % (MANUAL) 2 % (19-48); MONOCYTES % (MANUAL) 3 % (3.4-9.0); NEUTROPHILS % (MANUAL) 91 % (40-74)
[2017-10-15 10:50] LABS: RBC MORPHOLOGY COMMENT NORMAL
[2017-10-15 10:51] LABS: PLATELET ESTIMATE MODERATELY DECREASED; PLATELET MORPHOLOGY COMMENT FEW LARGE
[2017-10-15] MEDS ORDERED: BUMETANIDE INJ 0.25MG/ML 4ML VIAL IV NR (14:30)
--- NOTE | 2017-10-15 14:47 | Diagnostic Imaging Report ---
PROCEDURE: CT ABDOMEN AND PELVIS WITHOUT CONTRAST TECHNIQUE: The abdomen and pelvis were scanned utilizing a multidetector helical scanner from the diaphragm to the lesser trochanter after the oral administration of water. No IV contrast was administered per physician request. Coronal and sagittal multiplanar reformations were obtained. COMPARISON: None. INDICATIONS: RECENT BOWEL SURGERY FINDINGS: ABSENCE OF INTRAVENOUS CONTRAST DECREASES SENSITIVITY FOR DETECTION OF FOCAL LESIONS AND VASCULAR PATHOLOGY. LINES/TUBES: Enteric tube has distal tip in stomach fundus LOWER THORAX: Partially visualized left lower lobe consolidation and small pleural effusion. Atelectatic changes in the medial right lower lobe. Stable mild bronchial wall thickening and bronchiectatic changes in the right lower lobe. Pectus excavatum HEPATOBILIARY: No focal hepatic lesions. No biliary ductal dilatation. Stable punctate stones and sludge in the gallbladder lumen. SPLEEN: No splenomegaly. PANCREAS: No focal masses or ductal dilatation. ADRENALS: No adrenal nodules. KIDNEYS/URETERS: No hydronephrosis, stones, or solid mass lesions. PELVIC ORGANS/BLADDER: The bladder is decompressed and there is a [place] catheter in place. Uterus is absent. PERITONEUM / RETROPERITONEUM: Small amount of free pelvic fluid. Trace perihepatic and perisplenic ascites. No well-defined fluid collections. Interval resolution of previously visualized pneumoperitoneum. LYMPH NODES: No lymphadenopathy. VESSELS: Atherosclerotic calcification of the abdominal aorta and iliac vessels. GI TRACT: Status post resection of the descending and sigmoid colon, with distal transverse colostomy in the left lower quadrant. Blind-ending rectum, with surgical sutures. There is moderate rectal wall thickening and mild surrounding stranding (for example series 2, image 70 and 60). Residual contrast is noted in the ascending colon and transverse colon. No bowel dilation or evidence of obstruction. BONES AND SOFT TISSUES: No aggressive lytic lesion. Degenerative changes in the lumbosacral spine. IMPRESSION: 1. status post resection of the descending and sigmoid colon, with distal transverse colostomy in the left lower quadrant. Moderate circumferential wall thickening in the remaining rectal pouch, which is likely secondary to postsurgical edema. Interval resolution of previously visualized pneumoperitoneum. No well-defined fluid collections to suggest abscess, however, exam is limited by lack of intravenous contrast. 2. Partially visualized left lower lobe consolidation and small pleural effusion, which may represent marked atelectasis or pneumonia, in the proper clinical setting. 3. Trace perihepatic and perisplenic ascites and small amount of free fluid in the pelvis. 4. Cholelithiasis and sludge, without CT evidence of cholecystitis Jesus Covarrubias M.D. Dictated by: Jesus Covarrubias M.D. on 10/15/2017 at 14:47 Electronically approved by: Jesus Covarrubias M.D. on 10/15/2017 at 14:47
[2017-10-15] MEDS ORDERED: CLONIDINE HCL 0.2 MG/24 HR 1 EA PATCH TOP SCH (15:00)
[2017-10-15] MEDS: BUMETANIDE 10 MG in SODIUM CHLORIDE 0.9% 100 ML 60 ML IV SCH (17:45)
[2017-10-15] MEDS: MEROPENEM 500 MG VIAL IV SCH (17:45)
[2017-10-15] MEDS: CENTRAL TPN FORMULA 1 BAG IV SCH (20:46)
[2017-10-16] VITALS (115 sets, daily range): BP systolic 45–178; BP diastolic 34–132
[2017-10-16] MEDS: METOPROLOL TARTRATE INJ 1 MG/ML VIAL IV PRN ×3 (00:35→14:40)
[2017-10-16] MEDS: SODIUM CHLORIDE 0.9% 250ML IRRIG IR SCH ×6 (02:22→22:14)
[2017-10-16] MEDS ORDERED: BUMETANIDE INJ 0.25 MG/ML 10 ML VIAL ONE ×2 (02:53→03:01)
[2017-10-16] MEDS ORDERED: SODIUM CHLORIDE 0.9% 100 ML 100 ML ONE (02:58)
[2017-10-16] MEDS: BUMETANIDE 10 MG in SODIUM CHLORIDE 0.9% 100 ML 60 ML IV SCH ×2 (03:07→13:30)
[2017-10-16] MEDS: INSULIN REGULAR, HUMAN 100 UNIT/1 ML 3ML VIAL SQ SCH ×4 (05:58→23:03)
[2017-10-16] MEDS: PANTOPRAZOLE 40 MG 10ML VIAL IV SCH (05:58)
[2017-10-16] MEDS: BECLOMETHASONE DIP 80MCG 7.3 GM INH INH SCH (06:00)
[2017-10-16 06:37] LABS: ALBUMIN 2.6 g/dL (3.5-5.0); ALBUMIN/GLOBULIN RATIO 1.2 (0.8-2.0); ANION GAP 20.7 mmol/L (8-16); CALCIUM 7.4 mg/dL (8.4-10.2); CREATININE, SERUM 3.47 mg/dL (0.57-1.11); MAGNESIUM 2.6 MG/DL (1.3-2.1); PHOSPHORUS 4.4 MG/DL (2.3-4.7); POTASSIUM 3.7 mmol/L (3.5-5.1)
[2017-10-16] MEDS: IPRATROPIUM BROMIDE 0.02% 2.5 ML NEB NEB SCH ×3 (07:48→14:02)
[2017-10-16] MEDS: HYDROCORTISONE SOD SUCCINATE 100 MG VIAL IV SCH ×2 (08:15→23:01)
[2017-10-16] MEDS: BALSAM PERU/CASTOR OIL 60 GM OINT...G. TP SCH (09:33)
[2017-10-16] MEDS: HYDROMORPHONE 1MG/1ML INJ IV PRN (09:46)
[2017-10-16] MEDS ORDERED: FLUCONAZOLE 200 MG/100 ML 100 ML IV SCH (10:00)
[2017-10-16] MEDS ORDERED: SODIUM CHLORIDE 0.9% 250ML 250 ML ONE (10:30)
[2017-10-16] MEDS ORDERED: DAPTOMYCIN 350 MG in SODIUM CHLORIDE 0.9% 100 ML IV SCH (11:00)
[2017-10-16] MEDS: MICAFUNGIN SODIUM 100 ML IV SCH (11:00)
[2017-10-16] MEDS: ACETAMINOPHEN 1000 MG/100 ML IV PRN (12:59)
[2017-10-16] MEDS: DEXMEDETOMIDINE HCL 200 MCG in SODIUM CHLORIDE 0.9% 50ML 48 ML IV PRN ×2 (13:00→22:13)
[2017-10-16] MEDS ORDERED: SODIUM CHLORIDE 0.9% 1000ML 2,000 ML ONE (13:51)
[2017-10-16] MEDS: NOREPINEPHRINE BITARTRATE/ NS 250 ML IV PRN ×6 (14:00→16:15)
[2017-10-16] MEDS ORDERED: HYDROMORPHONE 20MG/ NS 100ML IV SCH (14:30)
[2017-10-16] MEDS: HYDROMORPHONE 100 ML IV PRN (15:00)
--- NOTE | 2017-10-16 16:07 | Progress Note ---
DATE: SUBJECTIVE: Ms. Paz remains in ICU. She is little bit worse today, more lethargic. Met with the family. She remains on a vent. PHYSICAL EXAMINATION: GENERAL: Intubated. She had a scant amount of secretions aspirated from her trach. NECK: No JVD. CHEST: Clear anteriorly. COR: S1, S2. ABDOMEN: Soft. EXTREMITIES: The wound looked really good. There is no redness, no drainage. LABORATORY DATA: Reviewed. Her white count today is down to 28.9, her hemoglobin of 11, hematocrit is 35, and her platelets are 41. Her blood cultures are still negative, there is no information. She had a CT of abdomen and pelvis, which showed status post resection of the descending and sigmoid colon with distal traverse colostomy, moderate wall thickening of the rectal pouch, which is likely due to postsurgical edema, partial visualized left lower lobe consolidation with 90% atelectasis or pneumonia. Cholelithiasis and sludge. MEDICATIONS: She is currently on insulin. Daptomycin was started today and micafungin was started today. She is on hydrocortisone 25 mg q.12 and meropenem. IMPRESSION 1. Leukocytosis. 2. Sepsis, mostly profound, there is a component of steroid. 3. Thrombocytopenia, still about the same. No change. She was started on daptomycin today because of concern about the new fever if she has infection with gram positive. She does have thrombocytopenia I thought originally from vancomycin. The question is if she has pneumonia, then I probably have to use linezolid. I am going to discontinue daptomycin after reassessing it with linezolid and see what happens. Also, I would like to see if we can wean down the steroid. We will discuss with critical care. 4. Respiratory failure. 5. Chronic kidney disease. 6. Status post ruptured colon, peritonitis. 7. History of rheumatoid arthritis. 8. Status post ruptured colon, post surgery as above. Status post exploratory laparotomy, sigmoid colectomy, end colostomy, and Vargas's pouch. Job#: [id number] ALAYNA
[2017-10-16] MEDS ORDERED: HEPARIN SOD (PORCINE) 1000 UNIT/ML SDV ONE (18:29)
[2017-10-16] MEDS ORDERED: CENTRAL TPN FORMULA 1 BAG IV SCH (20:00)
[2017-10-16] MEDS: LINEZOLID 600 MG/D5W 300ML 300 ML IV SCH (22:10)
[2017-10-16] MEDS: MEROPENEM 500 MG VIAL IV SCH (23:01)
[2017-10-17] VITALS (45 sets, daily range): BP systolic 63–162; BP diastolic 41–109
[2017-10-17] MEDS: HYDROMORPHONE 100 ML IV PRN ×2 (00:22→10:30)
[2017-10-17] MEDS: ACETAMINOPHEN 1000 MG/100 ML IV PRN (00:34)
[2017-10-17] MEDS: BUMETANIDE 10 MG in SODIUM CHLORIDE 0.9% 100 ML 60 ML IV SCH ×2 (02:30→09:30)
[2017-10-17] MEDS: SODIUM CHLORIDE 0.9% 250ML IRRIG IR SCH ×3 (03:13→10:45)
[2017-10-17] MEDS: LINEZOLID 600 MG/D5W 300ML 300 ML IV SCH (03:16)
[2017-10-17] MEDS ORDERED: SODIUM CHLORIDE 0.9% 500ML 500 ML ONE (03:20)
[2017-10-17 05:07] LABS: BASOPHILS # (AUTO) 0.1 (0.0-0.1); BASOPHILS % 0.5 % (0.0-1.0); HEMATOCRIT 34.7 % (34.2-44.1); HEMOGLOBIN 11.4 g/dL (12.0-16.0); LYMPHOCYTES # (AUTO) 0.4 (1.0-3.2); LYMPHOCYTES % 1.4 % (18.0-39.1); MEAN CORPUSCULAR HEMOGLOBIN 29.2 pg (28-32); MEAN CORPUSCULAR HGB CONC 32.9 g/dL (31-35); MEAN CORPUSCULAR VOLUME 88.7 fL (81-99); MONOCYTES # (AUTO) 1.2 (0.2-0.8); MONOCYTES % 4.6 % (4.4-11.3); NEUTROPHILS # (AUTO) 23.5 (2.1-6.9); NEUTROPHILS % 88.5 % (38.7-80.0); PLATELET COUNT 98 x10e3/uL (140-360); RED BLOOD COUNT 3.91 x10e6/uL (3.6-5.1); RED CELL DISTRIBUTION WIDTH 16.2 % (11.7-14.4)
--- NOTE | 2017-10-17 06:14 | Diagnostic Imaging Report ---
EXAM: CHEST SINGLE (PORTABLE), AP 1 view INDICATION: Intubated COMPARISON: AP view of the chest October 15, 2017 FINDINGS: LINES/TUBES: Stable endotracheal tube, nasal/orogastric tube, right internal jugular vein temporary hemodialysis catheter and right subclavian central line. LUNGS: Left lower lobe atelectasis/consolidation PLEURA: Small left pleural effusion HEART AND MEDIASTINUM: Normal size and contour. BONES AND SOFT TISSUES: No acute findings. IMPRESSION: No interval change Signed by: Dr. Yudi Garcia M.D. on 10/17/2017 6:10 AM
[2017-10-17] MEDS: IPRATROPIUM BROMIDE 0.02% 2.5 ML NEB NEB SCH ×3 (07:15→15:05)
[2017-10-17] MEDS: DEXMEDETOMIDINE HCL 200 MCG in SODIUM CHLORIDE 0.9% 50ML 48 ML IV PRN (08:35)
[2017-10-17] MEDS: HYDROCORTISONE SOD SUCCINATE 100 MG VIAL IV SCH (08:36)
[2017-10-17 08:41] LABS: ALBUMIN 2.2 g/dL (3.5-5.0); ANION GAP 13.8 mmol/L (8-16); CREATININE, SERUM 2.24 mg/dL (0.57-1.11); PHOSPHORUS 4.4 MG/DL (2.3-4.7); POTASSIUM 3.8 mmol/L (3.5-5.1)
[2017-10-17] MEDS: MICAFUNGIN SODIUM 100 ML IV SCH (08:44)
[2017-10-17] MEDS: BALSAM PERU/CASTOR OIL 60 GM OINT...G. TP SCH (08:45)
[2017-10-17 09:00] LABS: CALCIUM 6.9 mg/dL (8.4-10.2)
[2017-10-17] MEDS ORDERED: MICAFUNGIN SODIUM 50 MG/50 ML BAG IV SCH (09:00)
[2017-10-17 10:19] LABS: HYPOCHROMASIA SLIGHT; LYMPHOCYTES % (MANUAL) 4 % (19-48); METAMYELOCYTES % (MANUAL) 1 % (0-0); MONOCYTES % (MANUAL) 3 % (3.4-9.0); NEUTROPHILS % (MANUAL) 92 % (40-74); PLATELET ESTIMATE MODERATELY DECREASED; PLATELET MORPHOLOGY COMMENT MODERATE LARGE; RBC MORPHOLOGY COMMENT NORMAL
[2017-10-17] MEDS ORDERED: MIDAZOLAM HCL 2 MG/2 ML VIAL IV PRN (10:45)
[2017-10-17] MEDS: NOREPINEPHRINE BITARTRATE/ NS 250 ML IV PRN (11:53)
[2017-10-17] MEDS: INSULIN REGULAR, HUMAN 100 UNIT/1 ML 3ML VIAL SQ SCH (12:00)
--- NOTE | 2017-10-17 13:02 | Progress Note ---
DATE: SUBJECTIVE: I saw the patient on rounds today where family was at the bedside, and they have wished withdrawal of care on this critically ill woman, who is requiring ventilatory support, vasopressors for severe sepsis from ruptured colon with a colostomy, who is nonresponsive. OBJECTIVE: CURRENT VITAL SIGNS: Temperature of 101, blood pressure is 100/70, pulse 80. Sats 100%, on ventilatory support. GENERAL: She is sedated. NECK: Supple. CARDIOVASCULAR: Regular rate and rhythm. LUNGS: Decreased breath sounds bilaterally. ABDOMEN: Soft. EXTREMITIES: No clubbing or cyanosis. NEUROLOGICAL: Sedated. ASSESSMENT AND PLAN: 1. Sepsis. Patient is currently on intravenous antibiotics and vasopressor therapy, still doing very poorly. I had a long discussion with the daughter at the bedside, who wishes to do comfort care at this point, extubate patient for comfort measures, which will be done per the family's wishes , they did have a discussion with the primary care doctor, Dr. Young, he is in agreeance that withdrawal of care is appropriate for this patient, but until then will continue with current treatment. 2. End-stage renal disease. Continue to monitor. 3. Leukocytosis. Continue to monitor. 4. Diabetes. Continue to monitor. Please see hospital chart for full details. Job#: [id number]
== END 2017-10-17 20:30 | disposition expired | DRG 853 ==
LOC: ER 15:38 → ERHOLD 19:31 → ICU 10-10 03:33
PROVIDERS: ADMIT Family Medicine; ATTEND Family Medicine
PROC: 02HV33Z Insertion of Infusion Device into Superior Vena Cava, Percutaneous Approach (ICD-10-PCS; 2017-10-09)
PROC: 0DTN0ZZ Resection of Sigmoid Colon, Open Approach (ICD-10-PCS; principal; 2017-10-10)
PROC: 5A1955Z Respiratory Ventilation, Greater than 96 Consecutive Hours (ICD-10-PCS; 2017-10-10)
PROC: 0D1L0Z4 Bypass Transverse Colon to Cutaneous, Open Approach (ICD-10-PCS; 2017-10-10)
PROC: 0DTM0ZZ Resection of Descending Colon, Open Approach (ICD-10-PCS; 2017-10-10)
PROC: 0BH17EZ Insertion of Endotracheal Airway into Trachea, Via Natural or Artificial Opening (ICD-10-PCS; 2017-10-10)
PROC: 3E043XZ Introduction of Vasopressor into Central Vein, Percutaneous Approach (ICD-10-PCS; 2017-10-10)
PROC: 5A1D70Z Performance of Urinary Filtration, Intermittent, Less than 6 Hours Per Day (ICD-10-PCS; 2017-10-10)
PROC: 5A1D70Z Performance of Urinary Filtration, Intermittent, Less than 6 Hours Per Day (ICD-10-PCS; 2017-10-10)
PROC: 5A1D70Z Performance of Urinary Filtration, Intermittent, Less than 6 Hours Per Day (ICD-10-PCS; 2017-10-10)
PROC: 30243N1 Transfusion of Nonautologous Red Blood Cells into Central Vein, Percutaneous Approach (ICD-10-PCS; 2017-10-11)
PROC: 5A1D70Z Performance of Urinary Filtration, Intermittent, Less than 6 Hours Per Day (ICD-10-PCS; 2017-10-11)
PROC: 02HV33Z Insertion of Infusion Device into Superior Vena Cava, Percutaneous Approach (ICD-10-PCS; 2017-10-13)
PROC: 02HV33Z Insertion of Infusion Device into Superior Vena Cava, Percutaneous Approach (ICD-10-PCS; 2017-10-13)
PROC: 5A1D70Z Performance of Urinary Filtration, Intermittent, Less than 6 Hours Per Day (ICD-10-PCS; 2017-10-15)
DX: A41.9 Sepsis, unspecified organism (principal); J96.00 Acute respiratory failure, unspecified whether with hypoxia or hypercapnia; N17.0 Acute kidney failure with tubular necrosis; R65.21 Severe sepsis with septic shock; K72.00 Acute and subacute hepatic failure without coma; K57.21 Diverticulitis of large intestine with perforation and abscess with bleeding; G93.40 Encephalopathy, unspecified; N18.6 End stage renal disease; E87.2 Acidosis; J44.1 Chronic obstructive pulmonary disease with (acute) exacerbation; E27.40 Unspecified adrenocortical insufficiency; I12.0 Hypertensive chronic kidney disease with stage 5 chronic kidney disease or end stage renal disease; Z51.5 Encounter for palliative care; Z66 Do not resuscitate; E11.22 Type 2 diabetes mellitus with diabetic chronic kidney disease; I25.10 Atherosclerotic heart disease of native coronary artery without angina pectoris; I48.91 Unspecified atrial fibrillation; I49.1 Atrial premature depolarization; M06.9 Rheumatoid arthritis, unspecified; E87.5 Hyperkalemia; B18.2 Chronic viral hepatitis C; E78.5 Hyperlipidemia, unspecified; Z99.81 Dependence on supplemental oxygen; D63.8 Anemia in other chronic diseases classified elsewhere; R13.10 Dysphagia, unspecified; Z79.82 Long term (current) use of aspirin; Z79.52 Long term (current) use of systemic steroids; Z87.891 Personal history of nicotine dependence; D69.59 Other secondary thrombocytopenia; N76.0 Acute vaginitis
CPT/HCPCS: 36415; 36556; 36600; 70450; 70551; 71045; 74176; 74470; 76937; 80053; 80061; 81001; 82140; 82248; 82550; 82553; 82805; 82948; 83605; 83690; 83735; 83880; 84100; 84436; 84443; 84479; 84484; 85007; 85014; 85018; 85025; 85027; 85610; 85730; 86022; 86706; 86850; 86900; 86920; 86922; 87040; 87340; 87400; 88307; 90962; 93005; 93306; 94002; 94003; 94640; 96372; 99285; C1751; J0171; J0610; J0692; J1160; J1170; J1450; J1644; J1650; J1720; J1956; J2001; J2020; J2185; J2248; J2250; J2310; J2405; J2543; J2930; J3370; J3480; J7030; J7040; J7050; J7070; J7799; P9016